=== PATIENT | female | born 1950 | race Caucasian/White ===

== ENCOUNTER 2017-06-01 16:16 | Emergency (ER) | payer MEDICARE, OTHER ==
[2017-06-01 16:33] VITALS: BP 170/81
[2017-06-01] MEDS ORDERED: Lidocaine 1% 20 ML MDV ONE (16:35)
[2017-06-01] MEDS ORDERED: Lidocaine 1% 20 ML MDV INJECT ONE (16:50)
[2017-06-01] MEDS ORDERED: Bacitracin Oint 1 GM U/D Packet TOP ONE (16:50)
[2017-06-01] MEDS ORDERED: Diphtheria,Pertussis(Acell),Tetanus Vaccine 0.5 ML Syringe IM ONE (16:51)
--- NOTE | 2017-06-01 16:57 | EDM.PDOC ---
ED HPI GENERAL MEDICAL PROBLEM - General Chief Complaint: Laceration Stated Complaint: PAIN RT FOOT Time Seen by Provider: 06/01/17 16:31 - History of Present Illness INITIAL COMMENTS - FREE TEXT/NARRATIVE: HISTORY AND PHYSICAL: History of present illness: Patient 66-year-old female presents with a concern of acute injury to her right foot in the form of foreign body this is thought to be a retained fairly large approximately 2 inch splinter she denies up-to-date tetanus Review of systems: As per history of present illness and below otherwise all systems reviewed and negative. Past medical history: As per history of present illness and as reviewed below otherwise noncontributory. Surgical history: As per history of present illness and as reviewed below otherwise noncontributory. Social history: No reported history of drug or alcohol abuse. Family history: As per history of present illness and as reviewed below otherwise noncontributory. Physical exam: HEENT: Atraumatic, normocephalic, pupils reactive, negative for conjunctival pallor or scleral icterus, mucous membranes moist, throat clear, neck supple, nontender, trachea midline. Lungs: Clear to auscultation, breath sounds equal bilaterally, chest nontender. Heart: S1S2, regular, negative for clicks, rubs, or JVD. Abdomen: Soft, nondistended, nontender. Negative for masses or hepatosplenomegaly. Negative for costovertebral tenderness. Pelvis: Stable nontender. Genitourinary: Deferred. Rectal: Deferred. Extremities: Patient has a wound noted on the plantar surface with an obvious retained foreign body CMS and neurovascular exams unremarkable Neuro: Awake, alert, oriented. Cranial nerves II through XII unremarkable. Cerebellum unremarkable. Motor and sensory unremarkable throughout. Exam nonfocal. Diagnostics: None Therapeutics: Patient was anesthetized 1% lidocaine without epinephrine incision was made with 15 blade scalpel and a approximately 4 cm splinter was removed in its entirety wound was subsequently irrigated with cold spots 0.9 normal saline and closed with 4-0 nylon interrupted suture bacitracin was applied tetanus was updated Impression: #1 acute injury right foot (foreign body status post removal) Definitive disposition and diagnosis as appropriate pending reevaluation and review of above. 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 ED EXAM, SKIN/RASH Exam: See Below (See dictation) Course - Vital Signs Last Recorded V/S: Last Vital Signs Temp 36.4 C 06/01/17 16:26 Pulse 85 06/01/17 16:26 Resp 18 06/01/17 16:26 BP 170/81 H 06/01/17 16:26 Pulse Ox 97 06/01/17 16:26 - Orders/Labs/Meds Orders: Active Orders 24 hr Category Date Time Status Vaccines to be Administered [RC] PER UNIT ROUTINE Care 06/01/17 16:51 Active Meds: Medications Discontinued Medications Generic Name Dose Route Start Last Admin Trade Name Freq PRN Reason Stop Dose Admin Bacitracin 1 dose 06/01/17 16:50 Bacitracin Oint 1 Gm TOP 06/01/17 16:51 ONETIME ONE Diphtheria/Tetanus/Acell Pertussis 0.5 ml 06/01/17 16:51 Adacel IM 06/01/17 16:52 .ONCE ONE Lidocaine HCl Confirm 06/01/17 16:35 Xylocaine 1% Administered 06/01/17 16:36 Dose 20 ml .ROUTE .STK-MED ONE Lidocaine HCl 20 ml 06/01/17 16:50 06/01/17 16:52 Xylocaine 1% INJECT 06/01/17 16:51 20 ml ONETIME ONE Administration Departure - Departure Time of Disposition: 16:56 Disposition: Home, Self-Care 01 Condition: Good Clinical Impression: Foreign body - Discharge Information Forms: ED Department Discharge Additional Instructions: The following information is given to patients seen in the emergency department who are being discharged to home. This information is to outline your options for follow-up care. We provide all patients seen in our emergency department with a follow-up referral. The need for follow-up, as well as the timing and circumstances, are variable depending upon the specifics of your emergency department visit. If you don't have a primary care physician on staff, we will provide you with a referral. We always advise you to contact your personal physician following an emergency department visit to inform them of the circumstance of the visit and for follow-up with them and/or the need for any referrals to a consulting specialist. The emergency department will also refer you to a specialist when appropriate. This referral assures that you have the opportunity for followup care with a specialist. All of these measure are taken in an effort to provide you with optimal care, which includes your followup. Under all circumstances we always encourage you to contact your private physician who remains a resource for coordinating your care. When calling for followup care, please make the office aware that this follow-up is from your recent emergency room visit. If for any reason you are refused follow-up, please contact the [facility] emergency department at and asked to speak to the emergency department charge nurse. Follow-up primary medical doctor for wound check 24-48 hours suture removal 10- 14 days return as needed as discussed - My Orders Last 24 Hours: My Active Orders 06/01/17 16:51 Vaccines to be Administered [RC] PER UNIT ROUTINE - Assessment/Plan Last 24 Hours: My Active Orders 06/01/17 16:51 Vaccines to be Administered [RC] PER UNIT ROUTINE
== END 2017-06-01 17:14 | disposition home or self-care (01) ==
LOC: MW.ED 16:16
DX: S90.851A Superficial foreign body, right foot, initial encounter (principal); Z23 Encounter for immunization; Z79.899 Other long term (current) drug therapy; W45.8XXA Other foreign body or object entering through skin, initial encounter
CPT/HCPCS: 10120; 90471; 90715; 99282; 99282-25

== ENCOUNTER 2017-12-09 19:39 | Emergency (ER) | payer MEDICARE, OTHER ==
--- NOTE | 2017-12-09 20:02 | EDM.PDOC ---
ED HPI GENERAL MEDICAL PROBLEM - General Chief Complaint: Abdominal Pain Stated Complaint: ABDOMINAL/BACK PAIN NAUSEA/VOMITING Time Seen by Provider: 12/09/17 19:58 Source of Information: Reports: Patient History Limitations: Reports: No Limitations - History of Present Illness INITIAL COMMENTS - FREE TEXT/NARRATIVE: HISTORY AND PHYSICAL: []67-year-old female presenting with abdominal pain History of Present Illness: []This afternoon about 3:00pm patient felt strange in her stomach when and had a loose bowel movement and then felt like she wanted to vomit. Patient has come in waves often on Review of Systems: As per history of present illness and below otherwise all systems reviewed and negative. Past medical history: As per history of present illness and as reviewed below otherwise noncontributory. Surgical history: As per history of present illness and as reviewed below otherwise noncontributory. Social history: No reported history of drug or alcohol abuse. Family history: As per history of present illness and as reviewed below otherwise noncontributory. Physical exam: Alert and oriented female speaking in full sentences skin is warm and dry. No shortness of breath noted HEENT: Atraumatic, normocehpalic, pupils reactive, negative for conjunctival pallor or scleral icterus, mucous membranes moist, throat clear, neck supple, nontender, trachea midline. Lungs: Clear to auscultation, breath sounds equal bilaterally, chest non tender. Heart: S1S2, regular, negative for clicks, rubs, or JVD. Abdomen: Soft, nondistended, nontender. Negative for masses or hepatossplenmegaly. Positive for right costovertebral tenderness. Pelvis: Stable nontender. Genitourinary: Deferred. Rectal: Deferred Extremities: Atraumatic, negative for cords or calf pain. Neurovascular unremarkable. Neuro: Awake, alert, oriented. Cranial nerves II through XII unremarkable. Cerebellum unremarkable. Motor and sensory unremarkable throughout. Exam nonfocal. Discussed results of the lab work and CT scan with patient and her Diagnostics: [CBC CMP UA CT abdomen and pelvis with contrast] Therapeutics: [IV fluid Toradol] Morphine IV Impression: [Abdominal pain renal stone Pulmonary nodule 7 mm Plan: []Discharged to home Strain all urine Flomax per prescription daily at 2:00 Cipro 500 mg twice a day 7 days Hydrocodone/APAP 5/325 one tablet up to 3 times daily as needed for pain #12 no refill Recommend to follow-up with Dr. Smith, urologist Recommend follow-up establish with primary care Definitive disposition and diagnosis as appropriate pending reevaluation and review of above. Duration: Hour(s): Location: Reports: Back, Pelvis Quality: Reports: Stabbing Severity: Moderate Associated Symptoms: Reports: Other (Frequency of urination) right lower abdomen Pain Score (Numeric/FACES): 5 - Related Data Allergies Allergy/AdvReac Type Severity Reaction Status Date / Time No Known Allergies Allergy Verified 12/09/17 19:57 Home Meds: Home Meds DULoxetine [Cymbalta] 60 mg PO DAILY 06/01/17 [History] Famciclovir [Famvir] 0 mg PO DAILY 12/09/17 [History] Past Medical History - Past Health History Medical/Surgical History: Denies Medical/Surgical History HEENT History: Reports: Impaired 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 ED EXAM, GI/ABD - Physical Exam Exam: See Below (See dictation) Course - Vital Signs Last Recorded V/S: Last Vital Signs Temp 36.4 C 12/09/17 19:54 Pulse 63 12/09/17 19:54 Resp 20 12/09/17 19:54 BP 169/97 H 12/09/17 19:54 Pulse Ox 99 12/09/17 19:54 - Orders/Labs/Meds Orders: Active Orders 24 hr Category Date Time Status Abdomen Pelvis w Cont [CT] Stat Exams 12/09/17 20:08 Taken Sodium Chloride 0.9% [Saline Flush] Med 12/09/17 20:08 Active 10 ml FLUSH ASDIRECTED PRN Sodium Chloride 0.9% [Saline Flush] Med 12/09/17 20:08 Active 2.5 ml FLUSH ASDIRECTED PRN Saline Lock Insert [OM.PC] Stat Oth 12/09/17 20:08 Ordered Medication Orders Sodium Chloride (Saline Flush) 10 ml FLUSH ASDIRECTED PRN PRN Reason: Keep Vein Open Last Admin: 12/09/17 20:36 Dose: 10 ml Sodium Chloride (Saline Flush) 2.5 ml FLUSH ASDIRECTED PRN PRN Reason: Keep Vein Open Last Admin: 12/09/17 20:34 Dose: 2.5 ml Labs: Laboratory Tests 12/09/17 12/09/17 12/09/17 Range/Units 20:00 20:35 20:35 WBC 11.11 H (4.0-11.0) K/uL RBC 4.31 (4.30-5.90) M/uL Hgb 13.4 (12.0-16.0) g/dL Hct 39.6 (36.0-46.0) % MCV 91.9 (80.0-98.0) fL MCH 31.1 (27.0-32.0) pg MCHC 33.8 (31.0-37.0) g/dL RDW Std Deviation 43.3 (28.0-62.0) fl RDW Coeff of Joe 13 (11.0-15.0) % Plt Count 368 (150-400) K/uL MPV 9.70 (7.40-12.00) fL Neut % (Auto) 90.3 H (48.0-80.0) % Lymph % (Auto) 7.3 L (16.0-40.0) % Kerr % (Auto) 2.2 (0.0-15.0) % Eos % (Auto) 0.0 (0.0-7.0) % Baso % (Auto) 0.2 (0.0-1.5) % Neut # (Auto) 10.0 H (1.4-5.7) K/uL Lymph # (Auto) 0.8 (0.6-2.4) K/uL Kerr # (Auto) 0.2 (0.0-0.8) K/uL Eos # (Auto) 0.0 (0.0-0.7) K/uL Baso # (Auto) 0.0 (0.0-0.1) K/uL Nucleated RBC % 0.0 /100WBC Nucleated RBCs # 0 K/uL Sodium 142 (136-146) mmol/L Potassium 3.6 (3.5-5.1) mmol/L Chloride 107 (98-110) mmol/L Carbon Dioxide 23 (21-31) mmol/L BUN 16 (6.0-23.0) mg/dL Creatinine 1.0 (0.6-1.5) mg/dL Est Cr Clr Drug Dosing 48.45 mL/min Estimated GFR (MDRD) 55.1 ml/min Glucose 200 H (60-110) mg/dL Calcium 9.8 (8.8-10.8) mg/dL Total Bilirubin 0.4 (0.1-1.5) mg/dL AST 23 (5-40) IU/L ALT 14 (8-54) IU/L Alkaline Phosphatase 84 (40-150) Total Protein 7.8 (6.0-8.0) g/dL Albumin 4.6 (3.4-4.8) g/dL Globulin 3.2 (2.0-3.5) g/dL Albumin/Globulin Ratio 1.4 (1.3-2.8) Urine Color YELLOW Urine Appearance CLEAR Urine pH 7.0 (5.0-8.0) Ur Specific [place] 1.020 (1.001-1.035) Urine Protein NEGATIVE (NEGATIVE) mg/dL Urine Glucose (UA) 250 H (NEGATIVE) mg/dL Urine Ketones NEGATIVE (NEGATIVE) mg/dL Urine Occult Blood MODERATE (NEGATIVE) Urine Nitrite NEGATIVE (NEGATIVE) Urine Bilirubin NEGATIVE (NEGATIVE) Urine Urobilinogen 0.2 (<2.0) EU/dL Ur Leukocyte Esterase NEGATIVE (NEGATIVE) Meds: Medications Generic Name Dose Route Start Last Admin Trade Name Amarjit PRN Reason Stop Dose Admin Sodium Chloride 10 ml 12/09/17 20:08 12/09/17 20:36 Saline Flush FLUSH 10 ml ASDIRECTED PRN Administration Keep Vein Open Sodium Chloride 2.5 ml 12/09/17 20:08 12/09/17 20:34 Saline Flush FLUSH 2.5 ml ASDIRECTED PRN Administration Keep Vein Open Discontinued Medications Generic Name Dose Route Start Last Admin Trade Name Freq PRN Reason Stop Dose Admin Sodium Chloride 1,000 mls @ 999 mls/hr 12/09/17 20:08 12/09/17 20:34 Normal Saline IV 12/09/17 21:08 999 mls/hr STAT ONE Administration Ketorolac Tromethamine 30 mg 12/09/17 20:08 12/09/17 20:35 Toradol IVPUSH 12/09/17 20:09 30 mg ONETIME ONE Administration Morphine Sulfate 1 mg 12/09/17 21:38 Morphine IVPUSH 12/09/17 21:39 ONETIME ONE Ondansetron HCl 4 mg 12/09/17 21:38 Zofran IVPUSH 12/09/17 21:39 ONETIME ONE Departure - Departure Time of Disposition: 22:11 Disposition: Home, Self-Care 01 Condition: Good Clinical Impression: Renal stones Abdominal pain Qualifiers: Abdominal location: right lower quadrant Qualified Code(s): R10.31 - Right lower quadrant pain - Discharge Information Instructions: Abdominal Pain, Adult, [id number], Pain Medicine Instructions, [id number] Referrals: PCP,None [Primary Care Provider] - Forms: ED Department Discharge Additional Instructions: The following information is given to patients seen in the emergency department who are being discharged to home. This information is to outline your options for follow-up care. We provide all patients seen in our emergency department with a follow-up referral. The need for follow-up, as well as the timing and circumstances, are variable depending upon the specifics of your emergency department visit. If you don't have a primary care physician on staff, we will provide you with a referral. We always advise you to contact your personal physician following an emergency department visit to inform them of the circumstance of the visit and for follow-up with them and/or the need for any referrals to a consulting specialist. The emergency department will also refer you to a specialist when appropriate. This referral assures that you have the opportunity for followup care with a specialist. All of these measure are taken in an effort to provide you with optimal care, which includes your followup. Under all circumstances we always encourage you to contact your private physician who remains a resource for coordinating your care. When calling for followup care, please make the office aware that this follow-up is from your recent emergency room visit. If for any reason you are refused follow-up, please contact the [facility] emergency department at and asked to speak to the emergency department charge nurse. SHe has had abdominal pain likely caused by renal stones Prescriptions have been written for you Flomax 0.4 mg one daily at 2 PM #30 no refill Ciprofloxacin 500 mg one tablet twice a day 7 days Hydrocodone/APAP 5/325mg one tablet up to 3 times daily as needed for pain control #12 no refill Follow-up with Dr.Shahin CODY [facility] - Urology [address] [place] [id number] Incidental findings on your CT scan show a pulmonary nodules 7 mm is recommended to have follow-up with this and is likely benign Have recommended that you establish with primary care and suggest the residency clinic for follow-up care this week Please make an appointment by clling . - My Orders Last 24 Hours: My Active Orders 12/09/17 20:08 Abdomen Pelvis w Cont [CT] Stat Sodium Chloride 0.9% [Saline Flush] 10 ml FLUSH ASDIRECTED PRN Sodium Chloride 0.9% [Saline Flush] 2.5 ml FLUSH ASDIRECTED PRN Saline Lock Insert [OM.PC] Stat - Assessment/Plan Last 24 Hours: My Active Orders 12/09/17 20:08 Abdomen Pelvis w Cont [CT] Stat Sodium Chloride 0.9% [Saline Flush] 10 ml FLUSH ASDIRECTED PRN Sodium Chloride 0.9% [Saline Flush] 2.5 ml FLUSH ASDIRECTED PRN Saline Lock Insert [OM.PC] Stat
[2017-12-09] MEDS ORDERED: Sodium Chloride 0.9% 10 ML Syringe FLUSH PRN (20:08)
[2017-12-09] MEDS ORDERED: Ketorolac 30 MG/ML SDV IVPUSH ONE (20:08)
[2017-12-09] MEDS ORDERED: Sodium Chloride 0.9% 2.5 ML Syringe FLUSH PRN (20:08)
[2017-12-09] MEDS ORDERED: Sodium Chloride 0.9% 1,000 ML IV ONE (20:08)
[2017-12-09] MEDS ORDERED: Morphine 2 MG/ML Syringe IVPUSH ONE (21:38)
[2017-12-09] MEDS ORDERED: Ondansetron 4 MG/2 ML SDV IVPUSH ONE (21:38)
[2017-12-09] MEDS ORDERED: Iopamidol 755 MG/ML 500 ML Multipack Bottle IVPUSH STA (23:31)
[2017-12-09 23:46] VITALS: BP 113/68
--- NOTE | 2017-12-13 11:13 | CT ---
EXAM DATE: 12/09/17 PATIENT'S AGE: 67 Patient: TREY ALCANTAR Facility: [facility] Site . Site : 1950 Study: CT-Abdomen/Pelvis WITH [id number]/21/2018 9:43:19 PM Ordering Physician: Doctor Fiore Final Report: INDICATION: General abd pain Nausea TECHNIQUE: CT abdomen and pelvis acquired with IV contrast. COMPARISON: None FINDINGS: Lower chest: Solid rounded nonspecific noncalcified 7 mm pulmonary nodule within the left lower lobe seen on series 201, image 5. Mild scarring/ atelectasis. . Liver: Nonspecific heterogeneity of the liver. Spleen: Unremarkable. Pancreas: Unremarkable. Gallbladder and bile ducts: Unremarkable. Kidneys: 2 mm calculus within the right ureterovesicular junction with associated right-sided hydroureter/ hydronephrosis and periureteral/perinephric stranding. Delayed nephrogram on the right when compared to the left. Scattered subcentimeter foci of low attenuation throughout the right kidney which is too small to actually characterize by CT, likely renal cysts. . Adrenal glands: Unremarkable. GI tract: Small hiatal hernia. Gastric diverticulum near the gastric antrum. Small diverticulum along the 2nd portion of the duodenum. Moderate amount of stool. Appendix is not visualized. Vascular structures: Negative. No sign of aneurysm. Lymph nodes: Unremarkable. Miscellaneous: Left periumbilical fat containing hernia. No free air or significant free fluid. Pelvic Organs: Unremarkable. Bones: Degenerative changes. IMPRESSION: 1. 2 mm calculus within the right ureterovesicular junction with associated right-sided hydroureter/ hydronephrosis and periureteral/perinephric stranding. 2. Solid rounded nonspecific noncalcified 7 mm pulmonary nodule within the left lower lobe. Recommend comparison with any prior cross-sectional imaging of the chest 2 evaluate for stability/chronicity and/or follow-up per lung rads. Lung-RADS CATEGORY 0 INCOMPLETE: Findings: 1. Prior chest CT examination(s) being located for comparison. 2. Part or all of lungs cannot be evaluated. Management: Additional lung cancer screening CT images and/or comparison to prior chest CT examinations is needed. CATEGORY 1 NEGATIVE: Category Descriptor: No nodules and definitely benign nodules. Findings: 1. No lung nodules. 2. Nodule(s) with specific calcifications: Complete, central, popcorn, concentric rings and fat-containing nodules. Management: Continue annual screening with LDCT in 12 months. CATEGORY 2 BENIGN APPEARANCE OR BEHAVIOR: Category Descriptor: Nodules with a very low likelihood of becoming a clinically active cancer due to size or lack of growth. Findings: 1. Solid nodule(s) less than 6 mm, or new nodules less than 4 mm. 2. Part-solid nodule(s) less than 6 mm total diameter on baseline screening. 3. Non-solid nodule(s) (GGN) less than 20 mm OR greater than or equal to 20 mm and unchanged or slowly growing. 4. Category 3 or 4 nodules unchanged for greater than or equal to 3 months. Management: Continue annual screening with LDCT in 12 months. CATEGORY 3 PROBABLY BENIGN: Category Descriptor: Probably benign finding(s) - short-term follow-up suggested ; includes nodules with a low likelihood of becoming a clinically active cancer. Findings: 1. Solid nodule(s) greater than or equal to 6 mm to less than 8 mm at baseline OR new 4 mm to less than 6 mm. 2. Part-solid nodule(s) greater than or equal to 6 mm total diameter with solid component less than 6 mm OR new less than 6 mm total diameter. 3. Non-solid nodule(s) (GGN) greater than or equal to [address] or new. Management: 6-month LDCT. CATEGORY 4A SUSPICIOUS: Category Descriptor: Findings for which additional diagnostic testing and/or tissue sampling is recommended. Findings: 1. Solid nodule(s) greater than or equal to 8 mm to less than 15 mm at baseline OR growing less than 8 mm OR new 6 mm to 8 mm. 2. Part-solid nodule(s) greater than or equal to 6 mm with a solid component greater than or equal to 6 mm to 8 mm OR with new or growing less than 4 mm solid component. 3. Endobronchial nodule. Management: 3-month LDCT; PET/CT may be used when there is a greater than or equal to 8 mm solid component. CATEGORY 4B SUSPICIOUS: Category Descriptor: Findings for which additional diagnostic and/or tissue sampling is recommended. Findings: 1. Solid nodule(s) greater than or equal to 15 mm OR new or growing and greater than or equal to 8 mm. 2. Part solid nodule(s) with a solid component greater than or equal to 8 mm OR a new or growing greater than or equal to 4 m m solid component. Management: Chest CT with or without contrast, PET/CT and /or tissue sampling depending on the *probability of malignancy and co-morbidities. PET/CT may be used hen there is a greater than or equal to 8 mm solid component. Dictated by Jose Luis Marie MD @ 12/09/2017 10:11:49 PM Dictated by: Jose Luis Marie MD @ 12/09/2017 22:12:03 Signed by: Jose Luis Marie MD @12/09/2017 10:12:03 PM (Electronic Signature) Report Signed by Proxy. ANIRUDH
== END 2017-12-09 22:42 | disposition home or self-care (01) ==
LOC: MW.ED 19:39
DX: N20.0 Calculus of kidney (principal); R91.1 Solitary pulmonary nodule; Z79.899 Other long term (current) drug therapy
CPT/HCPCS: 74177; 80053; 81003; 85025; 96361; 96374; 99284; J1885; J7040; Q9967

== ENCOUNTER 2019-11-18 05:54 | Emergency (ER) | payer MEDICARE, OTHER ==
[2019-11-18] MEDS ORDERED: Sodium Chloride 0.9% 10 ML Syringe FLUSH PRN (05:57)
[2019-11-18] MEDS ORDERED: Sodium Chloride 0.9% 10 ML SDV IV PRN (05:57)
[2019-11-18] MEDS ORDERED: Sodium Chloride 0.9% 2.5 ML Syringe FLUSH PRN (05:57)
--- NOTE | 2019-11-18 06:27 | CT ---
INDICATION: Left-sided weakness COMPARISON: none TECHNIQUE: A CT volumetric acquisition was performed of the brain without IV contrast. FINDINGS: The CT images demonstrate a large intraparenchymal hemorrhage within the posterior right frontal and anterior right parietal region. The hemorrhage extends to the lateral margin of the brain and measures 5.6 cm AP x 3.6 cm transverse x 4.1 cm in height. There is a surrounding band of vasogenic edema and there is effacement of the adjacent cerebral sulci. There is mild leftward bowing of the anterior falx best appreciated on the coronal reformations. There is minimal mass effect upon the frontal horn of the right lateral ventricle. There is no evidence of intraventricular blood and no evidence of an epidural or subdural hematoma. On axial image 33 there is an additional small 6 mm hyperdense focus within the posterior medial right occipital lobe adjacent to the falx. This likely reflects a 2nd area of intraparenchymal hemorrhage. No areas of hemorrhage are noted within the contralateral left cerebral hemisphere. The basal cisterns remain patent. No areas of tissue infarction or hemorrhage are noted within the cerebellum, midbrain or lisa. There is normal aeration of the paranasal sinuses. Mastoid air cells middle ear cavities are clear. The mastoid air cells and middle ear cavities are clear. The calvarium appears intact. There is normal aeration of the visualized paranasal sinuses. IMPRESSION: Large intraparenchymal hemorrhage noted within the right posterior frontal lobe. In addition there is a tiny 6 mm hyperdense area within the posterior medial right occipital lobe suggesting a probable 2nd focus of hemorrhage. Note: I discussed the exam findings with Dr. Hutton in the emergency department at the completion of the exam on 11/18/2019 at 6:15 a.m. Please note that all CT scans at this facility use dose modulation, iterative reconstruction, and/or weight-based dosing when appropriate to reduce radiation dose to as low as reasonably achievable. Dictated by Danie Griffin MD @ Nov 18 2019 6:10AM Signed by Dr. Danie Griffin @ Nov 18 2019 6:26AM
--- NOTE | 2019-11-18 06:32 | EDM.PDOC ---
ED HPI GENERAL MEDICAL PROBLEM - General Chief Complaint: Neuro Symptoms/Deficits Stated Complaint: STROKE Time Seen by Provider: 11/18/19 05:55 Source of Information: Reports: Patient, Family History Limitations: Reports: No Limitations - History of Present Illness INITIAL COMMENTS - FREE TEXT/NARRATIVE: -69year-old female presents to the emergency room last seen normal 10:30 in the evening presents to the emergency room after falling out of bed. Her brought her to the hospital when he noted that she had dysarthria and unable to move her left arm. Patient was brought in by POV Onset: Today Duration: Minutes:, Waxing/Waning Severity: Severe Improves with: Reports: None Worsens with: Reports: None - Related Data Allergies Allergy/AdvReac Type Severity Reaction Status Date / Time No Known Allergies Allergy Verified 11/18/19 06:01 Home Meds: Home Meds DULoxetine [Cymbalta] 60 mg PO DAILY 06/01/17 [History] Past Medical History - Past Health History Medical/Surgical History: Denies Medical/Surgical History HEENT History: Reports: Impaired Vision Other HEENT History: wears glasses [employer] History: Reports: Musculoskeletal History: Reports: None Psychiatric History: Reports: Anxiety Dermatologic History: Reports: None - Infectious Disease History Infectious Disease History: Reports: Chicken Pox, Measles, Mumps - Past Surgical History Other Musculoskeletal Surgeries/Procedures:: knee surgery Social & Family History - Family History Family Medical History: Noncontributory - Tobacco Use Smoking Status *Q: Never Smoker - Caffeine Use Caffeine Use: Reports: None - Recreational Drug Use Recreational Drug Use: No ED ROS GENERAL - Review of Systems Review Of Systems: Comprehensive ROS is negative, except as noted in HPI. Constitutional: Reports: Weakness HEENT: Reports: No Symptoms Respiratory: Reports: No Symptoms Cardiovascular: Reports: No Symptoms Endocrine: Reports: No Symptoms GI/Abdominal: Reports: No Symptoms : Reports: No Symptoms Musculoskeletal: Reports: No Symptoms Skin: Reports: No Symptoms Neurological: Reports: Trouble Speaking (Patient has left arm weakness with dysarthria and left-sided facial droop), Weakness Psychiatric: Reports: No Symptoms Immunologic: Reports: No Symptoms ED EXAM, NEURO - Physical Exam Exam: See Below Text/Narrative:: Presents after being brought in for code stroke. Blood pressures 148/87, pulse of 115, O2 sat 96% 18 respirations rate nonlabored HEENT: Patient has flattening of the left nasolabial fold with dysarthria. Patient also has left-sided weakness, is awake and oriented and aware. Lungs clear to auscultation Chest: Normal S1-S2 no murmurs no gallops graft Abdomen soft nontender Remedies moving all extremities some weakness on the left Exam Limited By: No Limitations General Appearance: Alert, WD/WN, Severe Distress Eye Exam: Bilateral Eye: PERRL Ears: Normal External Exam Nose: Normal Inspection Throat/Mouth: Normal Inspection, Normal Lips, Normal Oropharynx Head Exam: Atraumatic, Normocephalic Neck: Normal Inspection, Supple, Non-Tender Respiratory/Chest: No Respiratory Distress, Lungs Clear, Normal Breath Sounds, No Accessory Muscle Use Cardiovascular: Normal Peripheral Pulses, Regular Rate, Rhythm, No JVD, No Murmur GI/Abdominal: Normal Bowel Sounds, Soft, Non-Tender, No Organomegaly Neurological: Alert, CN II-XII Intact, Oriented x 3 Back Exam: Normal Inspection, Full Range of Motion Extremities: Normal Inspection, Normal Range of Motion, No Pedal Edema, Normal Capillary Refill Psychiatric: Normal Affect, Normal Mood Skin Exam: Warm, Dry, Intact, Normal Color EKG INTERPRETATION EKG Date: 11/18/19 Rhythm: Other (sinusTach rate of 109) [place]: Normal P-Wave: Present QRS: Normal ST-T: Normal QT: Normal Course - Vital Signs Text/Narrative:: -69year-old female presents emergency room after being seen normal at 1030 last night. Patient awoke about 5:30 in the morning and presented to the emergency room at 555 with left-sided weakness dysarthria. Patient was made a code stroke and found to have i cerebral bleed 5 x 6 x 3.7. She has an early midline shift. Patient was accepted at [facility] by Dr. Canales but unable to fly at this time vitals are as follows blood pressures 148/87 pulse of 115 respiratory rate 18 O2 sat 96% patient is guarding her airway and able to talk without any problems. Labs are pending at this time only medication patient is on is for anxiety Cymbalta. This time attempting to get an accepting facility for this patient to go to by not because of weather. This time trying to go to [place] with a fixed wing. Patient is a full code per her . Able to get to [facility] because of weather conditions. We have an accepting physician [facility] the ER physician is Dr. Faye Her condition is unchanged. Patient has a good airway. And vitals are stable. Has been accepted at 6:47 AM Last Recorded V/S: Last Vital Signs Temp 96 F 11/18/19 05:54 Pulse 117 H 11/18/19 05:54 Resp 18 11/18/19 05:54 BP 151/95 H 11/18/19 05:54 Pulse Ox 96 11/18/19 05:54 - Orders/Labs/Meds Orders: Active Orders 24 hr Category Date Time Status Assess Neurological Status [RC] ASDIRECTED Care 11/18/19 06:00 Active Bedrest [RC] ASDIRECTED Care 11/18/19 06:00 Active Cardiac Monitoring [RC] . DIRECTED Care 11/18/19 06:00 Active EKG Documentation Completion [RC] STAT Care 11/18/19 06:00 Active Height and Weight [RC] UPON Care 11/18/19 06:00 Active Initiate Acute Stroke Protocol [RC] STAT Care 11/18/19 06:00 Active NIH Stroke Scale [RC] ASDIRECTED Care 11/18/19 06:00 Active Nursing Bedside Swallow Screen [RC] ASDIRECTED Care 11/18/19 06:00 Active Oxygen Therapy [RC] ASDIRECTED Care 11/18/19 06:00 Active Stroke Education, General [RC] Click to Edit Care 11/18/19 06:00 Active Vital Signs [RC] Q15M Care 11/18/19 06:00 Active Chest 1V Frontal [CR] Stat Exams 11/18/19 06:09 Ordered Head wo Cont [CT] Stat Exams 11/18/19 06:00 Taken COMPREHENSIVE METABOLIC PN,CMP [CHEM] Stat Lab 11/18/19 05:55 Received TROPONIN I [CHEM] Stat Lab 11/18/19 05:55 Received TSH [CHEM] Stat Lab 11/18/19 05:55 Received Sodium Chloride 0.9% [Normal Saline] Med 11/18/19 05:57 Active 10 ml IV ASDIRECTED PRN Sodium Chloride 0.9% [Saline Flush] Med 11/18/19 05:57 Active 10 ml FLUSH ASDIRECTED PRN Sodium Chloride 0.9% [Saline Flush] Med 11/18/19 05:57 Active 2.5 ml FLUSH ASDIRECTED PRN Peripheral IV Insertion Adult [OM.PC] Stat Ot 11/18/19 06:00 Ordered Peripheral IV Insertion Adult [OM.PC] Stat Ot 11/18/19 06:00 Ordered Resuscitation Status Stat Resus Stat 11/18/19 05:57 Ordered Medication Orders Sodium Chloride (Saline Flush) 10 ml FLUSH ASDIRECTED PRN PRN Reason: Keep Vein Open Sodium Chloride (Saline Flush) 2.5 ml FLUSH ASDIRECTED PRN PRN Reason: Keep Vein Open Sodium Chloride (Normal Saline) 10 ml IV ASDIRECTED PRN PRN Reason: IV Use Labs: Laboratory Tests 11/18/19 11/18/19 Range/Units 05:55 05:55 WBC 7.04 (4.0-11.0) K/uL RBC 4.22 L (4.30-5.90) M/uL Hgb 12.8 (12.0-16.0) g/dL Hct 38.7 (36.0-46.0) % MCV 91.7 (80.0-98.0) fL MCH 30.3 (27.0-32.0) pg MCHC 33.1 (31.0-37.0) g/dL RDW Std Deviation 43.5 (28.0-62.0) fl RDW Coeff of Joe 13 (11.0-15.0) % Plt Count 234 (150-400) K/uL MPV 9.40 (7.40-12.00) fL Neut % (Auto) 81.1 H (48.0-80.0) % Lymph % (Auto) 12.2 L (16.0-40.0) % Parker % (Auto) 6.5 (0.0-15.0) % Eos % (Auto) 0.1 (0.0-7.0) % Baso % (Auto) 0.1 (0.0-1.5) % Neut # (Auto) 5.7 (1.4-5.7) K/uL Lymph # (Auto) 0.9 (0.6-2.4) K/uL Parker # (Auto) 0.5 (0.0-0.8) K/uL Eos # (Auto) 0.0 (0.0-0.7) K/uL Baso # (Auto) 0.0 (0.0-0.1) K/uL Nucleated RBC % 0.0 /100WBC Nucleated RBCs # 0 K/uL INR 0.99 APTT 28.7 (18.6-31.3) SEC Meds: Medications Generic Name Dose Route Start Last Admin Trade Name Freq PRN Reason Stop Dose Admin Sodium Chloride 10 ml 11/18/19 05:57 Saline Flush FLUSH ASDIRECTED PRN Keep Vein Open Sodium Chloride 2.5 ml 11/18/19 05:57 Saline Flush FLUSH ASDIRECTED PRN Keep Vein Open Sodium Chloride 10 ml 11/18/19 05:57 Normal Saline IV ASDIRECTED PRN IV Use - Radiology Interpretation Free Text/Narrative:: The patient has an inercerebral bleed 5 x 7 x 3.7. With minimal midline shift Departure - Departure Time of Disposition: 06:54 Disposition: DC/Tfer to Acute Hospital 02 Condition: Serious Clinical Impression: Stroke due to intracerebral hemorrhage - Discharge Information Referrals: Danie Torres MD [Primary Care Provider] - Sepsis Event Note - Evaluation Sepsis Screening Result: No Definite Risk - Focused Exam Vital Signs: Vital Signs Temp Pulse Resp BP Pulse Ox 11/18/19 05:54 96 F 117 H 18 151/95 H 96 Date Exam was Performed: 11/18/19 Time Exam was Performed: 06:26 - My Orders Last 24 Hours: My Active Orders 11/18/19 05:55 COMPREHENSIVE METABOLIC PN,CMP [CHEM] Stat TROPONIN I [CHEM] Stat TSH [CHEM] Stat 11/18/19 05:57 Sodium Chloride 0.9% [Normal Saline] 10 ml IV ASDIRECTED PRN Sodium Chloride 0.9% [Saline Flush] 10 ml FLUSH ASDIRECTED PRN Sodium Chloride 0.9% [Saline Flush] 2.5 ml FLUSH ASDIRECTED PRN Resuscitation Status Stat 11/18/19 06:00 Assess Neurological Status [RC] ASDIRECTED Bedrest [RC] ASDIRECTED Cardiac Monitoring [RC] . DIRECTED EKG Documentation Completion [RC] STAT Height and Weight [RC] UPON Initiate Acute Stroke Protocol [RC] STAT NIH Stroke Scale [RC] ASDIRECTED Nursing Bedside Swallow Screen [RC] ASDIRECTED Oxygen Therapy [RC] ASDIRECTED Stroke Education, General [RC] Click to Edit Vital Signs [RC] Q15M Head wo Cont [CT] Stat Peripheral IV Insertion Adult [OM.PC] Stat Peripheral IV Insertion Adult [OM.PC] Stat 11/18/19 06:09 Chest 1V Frontal [CR] Stat - Assessment/Plan Last 24 Hours: My Active Orders 11/18/19 05:55 COMPREHENSIVE METABOLIC PN,CMP [CHEM] Stat TROPONIN I [CHEM] Stat TSH [CHEM] Stat 11/18/19 05:57 Sodium Chloride 0.9% [Normal Saline] 10 ml IV ASDIRECTED PRN Sodium Chloride 0.9% [Saline Flush] 10 ml FLUSH ASDIRECTED PRN Sodium Chloride 0.9% [Saline Flush] 2.5 ml FLUSH ASDIRECTED PRN Resuscitation Status Stat 11/18/19 06:00 Assess Neurological Status [RC] ASDIRECTED Bedrest [RC] ASDIRECTED Cardiac Monitoring [RC] . DIRECTED EKG Documentation Completion [RC] STAT Height and Weight [RC] UPON Initiate Acute Stroke Protocol [RC] STAT NIH Stroke Scale [RC] ASDIRECTED Nursing Bedside Swallow Screen [RC] ASDIRECTED Oxygen Therapy [RC] ASDIRECTED Stroke Education, General [RC] Click to Edit Vital Signs [RC] Q15M Head wo Cont [CT] Stat Peripheral IV Insertion Adult [OM.PC] Stat Peripheral IV Insertion Adult [OM.PC] Stat 11/18/19 06:09 Chest 1V Frontal [CR] Stat
--- NOTE | 2019-11-18 06:32 | CR ---
INDICATION: Stroke. COMPARISON: none TECHNIQUE: Portable AP erect chest performed at 6:17 a.m. FINDINGS: There is bilateral apical pleural scarring. There are no suspicious masses, infiltrates or nodules. There is no evidence of pneumothorax. The heart, mediastinum and pulmonary vessels are of normal size. There is no evidence of pleural fluid. IMPRESSION: No acute process identified. Dictated by Danie Griffin MD @ Nov 18 2019 6:30AM Signed by Dr. Danie Griffin @ Nov 18 2019 6:31AM
[2019-11-18 06:34] LABS: BLOOD UREA NITROGEN,BUN 9 mg/dL (7.0-18.0); CARBON DIOXIDE,CO2 26.6 mmol/L (21.0-32.0); CHLORIDE,CL 102 mmol/L (98-107); GLUCOSE RANDOM 136 mg/dL (74-106); POTASSIUM,K 3.1 mmol/L (3.5-5.1); SODIUM,NA 138 mmol/L (136-145)
[2019-11-18 07:20] VITALS: BP 157/91; PULSE 104
== END 2019-11-18 07:10 ==
LOC: MW.ED 05:54
DX: S06.309A Unspecified focal traumatic brain injury with loss of consciousness of unspecified duration, initial encounter (principal); W06.XXXA Fall from bed, initial encounter; Z79.899 Other long term (current) drug therapy
CPT/HCPCS: 36415; 70450; 70450-26; 71045; 71045-26; 80053; 84443; 84484; 85025; 85610; 85730; 93005; 99285; 99285-25

== ENCOUNTER 2020-07-31 12:16 | Observation (INO) | payer MEDICARE, OTHER ==
[2020-07-31] MEDS ORDERED: Sodium Chloride 0.9% 10 ML SDV IV PRN (12:25)
[2020-07-31] MEDS ORDERED: Sodium Chloride 0.9% 10 ML Syringe FLUSH PRN (12:25)
[2020-07-31] MEDS ORDERED: Sodium Chloride 0.9% 2.5 ML Syringe FLUSH PRN (12:25)
--- NOTE | 2020-07-31 12:30 | EDM.PDOC ---
ED HPI GENERAL MEDICAL PROBLEM - General Chief Complaint: Neuro Symptoms/Deficits Stated Complaint: STROKE CODE Time Seen by Provider: 07/31/20 12:18 Source of Information: Reports: Patient - History of Present Illness INITIAL COMMENTS - FREE TEXT/NARRATIVE: History of present illness: 69-year-old female presenting with feeling unwell and abnormal speech about 15 minutes prior to arrival here. She was apparently driving with family member and she had just eaten a banana when she started to feel strange. She had some funny pressure feeling over her forehead and felt that she could not make a sentence appropriately and she noticed some shaking of her left arm that she was wondering if she was having a seizure. She did have an intracranial hemorrhage on the right side and a craniotomy about 9 months ago. She reports she has had some minor symptoms that come and go since then including an intermittent left facial droop when she gets fatigued. Stroke alert activated on patient's arrival here. Review of systems: As per history of present illness and below otherwise all systems reviewed and negative. Past medical history: As per history of present illness and as reviewed below otherwise noncontributory. Intracranial hemorrhage, hypertension Surgical history: As per history of present illness and as reviewed below otherwise noncontributory. Craniotomy Social history: No reported history of drug or alcohol abuse. No tobacco Family history: As per history of present illness and as reviewed below otherwise noncontributory. Physical exam: GEN: no acute distress, well appearing HEENT: Atraumatic, normocephalic, mucous membranes moist, very mild left facial droop at rest, corrects with intention. Neck: supple, nontender, trachea midline. Lungs: No respiratory distress. Heart: RRR Abdomen: Soft, nondistended, nontender. Back: nontender Extremities: Atraumatic. Neurovascularly intact. Neuro: Awake, alert, oriented x3. Speech without aphasia or dysarthria. Intact strength over arms and legs bilaterally. No sensory deficit over face, arms and legs. No convulsive activity or abnormal extremity movement. No ataxia on [id number] or [id number]-[id number]-hyoj testing. She does have a very mild left facial droop that does correct when she smiles and she does report that she has had this intermittently as noticed by her spouse especially when she gets fatigued. Skin: warm, dry, no lesions Diagnostics: Labs, CT scan, troponin, EKG Therapeutics: Aspirin, Lipitor MDM: Impression: Plan: Definitive disposition and diagnosis as appropriate pending reevaluation and review of above. - Related Data Allergies Allergy/AdvReac Type Severity Reaction Status Date / Time No Known Allergies Allergy Verified 07/31/20 14:43 Home Meds: Home Meds DULoxetine [Cymbalta] 60 mg PO DAILY 06/01/17 [History] Acetaminophen [Tylenol] 120 mg PO PRN 07/31/20 [History] Past Medical History - Past Health History Medical/Surgical History: Denies Medical/Surgical History HEENT History: Reports: Impaired Vision Other HEENT History: wears glasses [employer] History: Reports: Musculoskeletal History: Reports: None Psychiatric History: Reports: Anxiety Dermatologic History: Reports: None - Infectious Disease History Infectious Disease History: Reports: Chicken Pox, Measles, Mumps - Past Surgical History Other Musculoskeletal Surgeries/Procedures:: knee surgery Social & Family History - Family History Family Medical History: Noncontributory - Caffeine Use Caffeine Use: Reports: None ED ROS GENERAL - Review of Systems Review Of Systems: See Below (See HPI) ED EXAM, NEURO - Physical Exam Exam: See Below (See HPI) EKG INTERPRETATION EKG Interpretation Comments: Performed today at 12:47 PM, sinus tachycardia rate 100 nonspecific intraventricular delay mild lateral and inferior ST depressions with no reciprocal changes. Patient without any chest pain. No STEMI. EKG independently interpreted by me. *Q Meaningful Use (ADM) - Stroke *Q Stroke Criteria *Q: Aspirin and Lipitor given Course - Vital Signs Text/Narrative:: Patient with abnormal speech and some abnormal movement of the left upper extremity. Resolved prior to arrival here. Residual left facial droop but this was present previously per family members. She did have intracranial hemorrhage in October 2019. Stroke alert activated immediately. Initial NIH stroke scale was 1 based on facial droop on the left. CT brain negative for acute intracranial hemorrhage but does have old area of encephalomalacia in the right frontal lobe consistent with location of prior intra-parenchymal hemorrhage October 2019. CT angios head and neck with no large vessel occlusion. Case discussed with interventional neurology at [facility] who recommends against TPA at this time. Reassessment shows unchanged and non-progressing exam. Aspirin and Lipitor given. Will admit the patient here under observation/telemetry. On EKG she did have some mild diffuse ST depressions less than 1 mm, however she has not had any chest pain or difficulty breathing or any other anginal equivalents, there are no reciprocal ST elevations, and her troponin was negative. We will check repeat 2-hour troponin. Repeat 2-hour troponin negative. Last Recorded V/S: Last Vital Signs Temp 97.5 F 07/31/20 14:13 Pulse 77 07/31/20 14:15 Resp 18 07/31/20 14:13 BP 143/86 H 07/31/20 14:15 Pulse Ox 98 07/31/20 14:15 - Orders/Labs/Meds Orders: Active Orders 24 hr Category Date Time Status Patient Status [ADT] Routine ADT 07/31/20 13:30 Active Assess Neurological Status [RC] ASDIRECTED Care 07/31/20 12:26 Active Bedrest [RC] ASDIRECTED Care 07/31/20 12:26 Active Cardiac Monitoring [RC] . DIRECTED Care 07/31/20 12:26 Active EKG Documentation Completion [RC] STAT Care 07/31/20 12:26 Active Height and Weight [RC] UPON Care 07/31/20 12:26 Active Initiate Acute Stroke Protocol [RC] STAT Care 07/31/20 12:26 Active NIH Stroke Scale [RC] ASDIRECTED Care 07/31/20 12:26 Active Nursing Bedside Swallow Screen [RC] ASDIRECTED Care 07/31/20 12:26 Active Oxygen Therapy [RC] ASDIRECTED Care 07/31/20 12:26 Active Stroke Education, General [RC] Click to Edit Care 07/31/20 12:26 Active Vital Signs [RC] Q4H Care 07/31/20 12:26 Active UA W/MICROSCOPIC [URIN] Stat Lab 07/31/20 12:26 Ordered Sodium Chloride 0.9% [Normal Saline] Med 07/31/20 12:25 Active 10 ml IV ASDIRECTED PRN Sodium Chloride 0.9% [Saline Flush] Med 07/31/20 12:25 Active 10 ml FLUSH ASDIRECTED PRN Sodium Chloride 0.9% [Saline Flush] Med 07/31/20 12:25 Active 2.5 ml FLUSH ASDIRECTED PRN Peripheral IV Insertion Adult [OM.PC] Stat Oth 07/31/20 12:26 Ordered Peripheral IV Insertion Adult [OM.PC] Stat Oth 07/31/20 12:26 Ordered Resuscitation Status Stat Resus Stat 07/31/20 12:25 Ordered Medication Orders Acetaminophen (Tylenol Extra Strength) 500 mg PO Q6H PRN PRN Reason: Pain Pantoprazole Sodium (Protonix) 40 mg PO DAILY JIMENA Sodium Chloride (Saline Flush) 10 ml FLUSH ASDIRECTED PRN PRN Reason: Keep Vein Open Last Admin: 07/31/20 12:34 Dose: 10 ml Documented by: CANDIDA Sodium Chloride (Saline Flush) 2.5 ml FLUSH ASDIRECTED PRN PRN Reason: Keep Vein Open Last Admin: 07/31/20 12:34 Dose: 2.5 ml Documented by: CANDIDA Sodium Chloride (Normal Saline) 10 ml IV ASDIRECTED PRN PRN Reason: IV Use Last Admin: 07/31/20 12:34 Dose: 10 ml Documented by: CANDIDA Labs: Laboratory Tests 07/31/20 07/31/20 07/31/20 Range/Units 12:24 12:24 12:24 WBC 5.04 (4.0-11.0) K/uL RBC 4.24 L (4.30-5.90) M/uL Hgb 13.4 (12.0-16.0) g/dL Hct 39.1 (36.0-46.0) % MCV 92.2 (80.0-98.0) fL MCH 31.6 (27.0-32.0) pg MCHC 34.3 (31.0-37.0) g/dL RDW Std Deviation 39.9 (28.0-62.0) fl RDW Coeff of Joe 12 (11.0-15.0) % Plt Count 329 (150-400) K/uL MPV 9.40 (7.40-12.00) fL Neut % (Auto) 61.1 (48.0-80.0) % Lymph % (Auto) 27.0 (16.0-40.0) % [place] % (Auto) 8.5 (0.0-15.0) % Eos % (Auto) 3.0 (0.0-7.0) % Baso % (Auto) 0.4 (0.0-1.5) % Neut # (Auto) 3.1 (1.4-5.7) K/uL Lymph # (Auto) 1.4 (0.6-2.4) K/uL [place] # (Auto) 0.4 (0.0-0.8) K/uL Eos # (Auto) 0.2 (0.0-0.7) K/uL Baso # (Auto) 0.0 (0.0-0.1) K/uL INR 1.00 APTT 28.1 (18.6-31.3) SEC Sodium 140 (136-145) mmol/L Potassium 4.1 (3.5-5.1) mmol/L Chloride 104 (98-107) mmol/L Carbon Dioxide 26.9 (21.0-32.0) mmol/L BUN 19 H (7.0-18.0) mg/dL Creatinine 1.0 (0.6-1.0) mg/dL Est Cr Clr Drug Dosing 47.10 mL/min Estimated GFR (MDRD) 54.8 ml/min Glucose 94 (74-106) mg/dL Hemoglobin A1c (4.5-6.2) % Calcium 8.6 (8.5-10.1) mg/dL Total Bilirubin 0.6 (0.2-1.0) mg/dL AST 22 (15-37) IU/L ALT 29 (14-63) IU/L Alkaline Phosphatase 98 (46-116) U/L Troponin I < 0.050 (0.000-0.056) ng/mL Total Protein 7.4 (6.4-8.2) g/dL Albumin 3.9 (3.4-5.0) g/dL Globulin 3.5 (2.6-4.0) g/dL Albumin/Globulin Ratio 1.1 (0.9-1.6) TSH 3rd Generation 1.26 (0.36-3.74) uIU/mL SARS Virus RNA (PCR) (NEGATIVE) 07/31/20 07/31/20 Range/Units 12:24 13:08 WBC (4.0-11.0) K/uL RBC (4.30-5.90) M/uL Hgb (12.0-16.0) g/dL Hct (36.0-46.0) % MCV (80.0-98.0) fL MCH (27.0-32.0) pg MCHC (31.0-37.0) g/dL RDW Std Deviation (28.0-62.0) fl RDW Coeff of Joe (11.0-15.0) % Plt Count (150-400) K/uL MPV (7.40-12.00) fL Neut % (Auto) (48.0-80.0) % Lymph % (Auto) (16.0-40.0) % [place] % (Auto) (0.0-15.0) % Eos % (Auto) (0.0-7.0) % Baso % (Auto) (0.0-1.5) % Neut # (Auto) (1.4-5.7) K/uL Lymph # (Auto) (0.6-2.4) K/uL [place] # (Auto) (0.0-0.8) K/uL Eos # (Auto) (0.0-0.7) K/uL Baso # (Auto) (0.0-0.1) K/uL INR APTT (18.6-31.3) SEC Sodium (136-145) mmol/L Potassium (3.5-5.1) mmol/L Chloride (98-107) mmol/L Carbon Dioxide (21.0-32.0) mmol/L BUN (7.0-18.0) mg/dL Creatinine (0.6-1.0) mg/dL Est Cr Clr Drug Dosing mL/min Estimated GFR (MDRD) ml/min Glucose (74-106) mg/dL Hemoglobin A1c 6.0 (4.5-6.2) % Calcium (8.5-10.1) mg/dL Total Bilirubin (0.2-1.0) mg/dL AST (15-37) IU/L ALT (14-63) IU/L Alkaline Phosphatase (46-116) U/L Troponin I (0.000-0.056) ng/mL Total Protein (6.4-8.2) g/dL Albumin (3.4-5.0) g/dL Globulin (2.6-4.0) g/dL Albumin/Globulin Ratio (0.9-1.6) TSH 3rd Generation (0.36-3.74) uIU/mL SARS Virus RNA (PCR) NEGATIVE (NEGATIVE) Meds: Medications Generic Name Dose Route Start Last Admin Trade Name Christoferq PRN Reason Stop Dose Admin Acetaminophen 500 mg 07/31/20 15:43 Tylenol Extra Strength PO Q6H PRN Pain Pantoprazole Sodium 40 mg 07/31/20 15:45 Protonix PO DAILY JIMENA Sodium Chloride 10 ml 07/31/20 12:25 07/31/20 12:34 Saline Flush FLUSH 10 ml ASDIRECTED PRN Administration Keep Vein Open Sodium Chloride 2.5 ml 07/31/20 12:25 07/31/20 12:34 Saline Flush FLUSH 2.5 ml ASDIRECTED PRN Administration Keep Vein Open Sodium Chloride 10 ml 07/31/20 12:25 07/31/20 12:34 Normal Saline IV 10 ml ASDIRECTED PRN Administration IV Use Discontinued Medications Generic Name Dose Route Start Last Admin Trade Name Freq PRN Reason Stop Dose Admin Aspirin 81 mg 07/31/20 13:29 07/31/20 15:30 Aspirin PO 07/31/20 13:30 81 mg ONETIME ONE Administration Atorvastatin Calcium 20 mg 07/31/20 13:29 07/31/20 15:30 Lipitor PO 07/31/20 13:30 20 mg ONETIME ONE Administration Atorvastatin Calcium 20 mg 07/31/20 14:15 Lipitor PO 07/31/20 14:16 ONETIME ONE Iopamidol 100 ml 07/31/20 12:52 07/31/20 12:52 Isovue-370 (76%) IVPUSH 07/31/20 12:53 100 ml ONETIME ONE Administration - Re-Assessments/Exams Free Text/Narrative Re-Assessment/Exam: 07/31/20 12:40 I reviewed the noncontrast CT scan images. No acute hemorrhage or stroke seen. Compared to prior CT scan from October 2019, there is now encephalomalacia in the right frontal lobe which is where she had a prior intracranial hemorrhage. 07/31/20 12:48 Case to be discussed with interventional neurologist at [facility] recommendations for TPA and potential transfer 07/31/20 12:[address] BARRON, stroke neurologist at [facility]. We discussed her physical exam findings including NIH stroke scale of 1 with the facial droop that is somewhat chronic prior to today, and that all other symptoms that were present earlier today are now resolved, and her prior history of intracranial hemorrhage in October 2019, and he recommends against TPA and agrees with plan for CT angios head and neck and can give the patient aspirin 81 mg and Lipitor 20 mg. Not a TPA candidate at this time. 07/31/20 13:19 I reassessed the patient. Repeat stroke scale is unchanged, the patient has no new symptoms. Discussed all results of CT brain and CT angios head and neck with the patient, as well as my discussion with the interventional neurologist and recommendations for avoiding TPA at this time. Patient is in agreement with this plan. I had also discussed results and plan with the patient's daughter waiting in the parking lot due to no visitor policy at the hospital currently, and her spouse via telephone. Her spouse did confirm that she has a chronic left facial droop since the intracranial hemorrhage 10/2019. Her daughter did confirm that around noon they were driving and the patient had just eaten a candy and suddenly started to have what appeared to be a twitch/stiffening of her neck and left arm that was very transient and then developed some abnormal speech. She did not choke. On arrival here the symptoms had resolved. 07/31/20 13:26 Dr. Scott called back and accepts the case for admission. Request to place patient under observation/telemetry. Departure - Departure Time of Disposition: 13:29 Disposition: Refer to Observation Clinical Impression: TIA (transient ischemic attack) - Discharge Information Sepsis Event Note (ED) - Focused Exam Vital Signs: Vital Signs Temp Pulse Resp BP Pulse Ox 07/31/20 13:40 80 145/90 H 97 07/31/20 13:14 96 149/87 H 99 07/31/20 12:54 102 H 136/85 98 07/31/20 12:40 123 H 133/80 94 L 07/31/20 12:26 98.8 F 98 16 156/103 H 95 07/31/20 12:24 94 144/93 H 94 L - My Orders Last 24 Hours: My Active Orders 07/31/20 12:25 Sodium Chloride 0.9% [Normal Saline] 10 ml IV ASDIRECTED PRN Sodium Chloride 0.9% [Saline Flush] 10 ml FLUSH ASDIRECTED PRN Sodium Chloride 0.9% [Saline Flush] 2.5 ml FLUSH ASDIRECTED PRN Resuscitation Status Stat 07/31/20 12:26 Assess Neurological Status [RC] ASDIRECTED Bedrest [RC] ASDIRECTED Cardiac Monitoring [RC] . DIRECTED EKG Documentation Completion [RC] STAT Height and Weight [RC] UPON Initiate Acute Stroke Protocol [RC] STAT NIH Stroke Scale [RC] ASDIRECTED Nursing Bedside Swallow Screen [RC] ASDIRECTED Oxygen Therapy [RC] ASDIRECTED Stroke Education, General [RC] Click to Edit Vital Signs [RC] Q4H UA W/MICROSCOPIC [URIN] Stat Peripheral IV Insertion Adult [OM.PC] Stat Peripheral IV Insertion Adult [OM.PC] Stat 07/31/20 13:30 Patient Status [ADT] Routine - Assessment/Plan Last 24 Hours: My Active Orders 07/31/20 12:25 Sodium Chloride 0.9% [Normal Saline] 10 ml IV ASDIRECTED PRN Sodium Chloride 0.9% [Saline Flush] 10 ml FLUSH ASDIRECTED PRN Sodium Chloride 0.9% [Saline Flush] 2.5 ml FLUSH ASDIRECTED PRN Resuscitation Status Stat 07/31/20 12:26 Assess Neurological Status [RC] ASDIRECTED Bedrest [RC] ASDIRECTED Cardiac Monitoring [RC] . DIRECTED EKG Documentation Completion [RC] STAT Height and Weight [RC] UPON Initiate Acute Stroke Protocol [RC] STAT NIH Stroke Scale [RC] ASDIRECTED Nursing Bedside Swallow Screen [RC] ASDIRECTED Oxygen Therapy [RC] ASDIRECTED Stroke Education, General [RC] Click to Edit Vital Signs [RC] Q4H UA W/MICROSCOPIC [URIN] Stat Peripheral IV Insertion Adult [OM.PC] Stat Peripheral IV Insertion Adult [OM.PC] Stat 07/31/20 13:30 Patient Status [ADT] Routine
[2020-07-31] MEDS ORDERED: Iopamidol 755 Mg/ML 100 ML Bottle IVPUSH ONE (12:52)
--- NOTE | 2020-07-31 13:00 | CT ---
CT ANGIOGRAM HEAD AND NECK DATE: 07/31/2020 CLINICAL HISTORY: Patient with focal neurological deficits. TECHNIQUE: Standard helical CT image acquisition through the head and neck was performed after intravenous contrast bolus enhancement. Multiplanar reconstructed images were performed and interpreted. COMPARISON: CT same day. 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 The origins of the great vessels from the aortic arch are patent. The origin of the right vertebral artery is patent. The origin of the left vertebral artery is patent. The common carotid arteries are patent There is no stenosis at the origin of the right internal carotid artery. There is no stenosis at the origin of the left internal carotid artery. The rest of the cervical segments of the internal carotid arteries are patent up to their intracranial segments. The intracranial segments of the internal carotid arteries are patent. The right vertebral artery is dominant. The cervical segments of the vertebral arteries are patent. The intracranial segments of the vertebral arteries are patent. There is no proximal intracranial large vessel occlusion. The visualized lung apices are unremarkable The thyroid gland is unremarkable. The soft tissues of the neck are unremarkable. There are degenerative changes in the cervical spine. IMPRESSION: 1. No proximal intracranial large vessel occlusion. 2. Patent cervical vasculature. 3. 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 Teleheath consultation with [facility]inter[facility] team for management of this aneurysm can be arranged by calling . Laura Justin M.D. Neurointerventional Radiologist [facility] Pager: Office/Appointments: Answering Service: [facility]: [email or web address] Please note that all CT scans at this facility use dose modulation, iterative reconstruction, and/or weight-based dosing when appropriate to reduce radiation dose to as low as reasonably achievable. Dictated by: Laura Justin MD @ 07/31/2020 14:15:30 (Electronically Signed)
--- NOTE | 2020-07-31 13:00 | CT ---
CT ANGIOGRAM HEAD AND NECK DATE: 07/31/2020 CLINICAL HISTORY: Patient with focal neurological deficits. TECHNIQUE: Standard helical CT image acquisition through the head and neck was performed after intravenous contrast bolus enhancement. Multiplanar reconstructed images were performed and interpreted. COMPARISON: CT same day. 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 The origins of the great vessels from the aortic arch are patent. The origin of the right vertebral artery is patent. The origin of the left vertebral artery is patent. The common carotid arteries are patent There is no stenosis at the origin of the right internal carotid artery. There is no stenosis at the origin of the left internal carotid artery. The rest of the cervical segments of the internal carotid arteries are patent up to their intracranial segments. The intracranial segments of the internal carotid arteries are patent. The right vertebral artery is dominant. The cervical segments of the vertebral arteries are patent. The intracranial segments of the vertebral arteries are patent. There is no proximal intracranial large vessel occlusion. The visualized lung apices are unremarkable The thyroid gland is unremarkable. The soft tissues of the neck are unremarkable. There are degenerative changes in the cervical spine. IMPRESSION: 1. No proximal intracranial large vessel occlusion. 2. Patent cervical vasculature. 3. 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 Teleheath consultation with [facility]interventional team for management of this aneurysm can be arranged by calling . Laura Justin M.D. Neurointerventional Radiologist [facility] Pager: Office/Appointments: Answering Service: [facility]: [email or web address] Please note that all CT scans at this facility use dose modulation, iterative reconstruction, and/or weight-based dosing when appropriate to reduce radiation dose to as low as reasonably achievable. Dictated by: Laura Justin MD @ 07/31/2020 14:15:04 (Electronically Signed)
--- NOTE | 2020-07-31 13:05 | CT ---
INDICATION: Concern for stroke. TECHNIQUE: Noncontrast CT images were obtained through the brain. COMPARISON: CT brain 11/18/2019. FINDINGS: Moderate encephalomalacia and gliosis within the lateral right frontal lobe and anterior right insula at the location of prior parenchymal hematoma. Mild diffuse cerebral volume loss. No mass effect or midline shift. The wiseman-white differentiation is maintained. Scattered hypoattenuation in the supratentorial white matter, suggestive of mild chronic microvascular ischemic changes. No acute intracranial hemorrhage or pathologic extra-axial fluid collection. Intracranial atherosclerotic calcifications. Thinning of the ocular lenses. Postsurgical changes of right pterional craniotomy. The paranasal sinuses and mastoid air cells are clear. IMPRESSION: 1. No acute intracranial hemorrhage or mass effect. 2. Moderate encephalomalacia and gliosis within the lateral right frontal lobe and right insula at the location of prior parenchymal hematoma. 3. Suggested mild chronic microvascular ischemic changes. 4. Mild diffuse cerebral volume loss. Please note that all CT scans at this facility use dose modulation, iterative reconstruction, and/or weight-based dosing when appropriate to reduce radiation dose to as low as reasonably achievable. Dictated by Pedro Burnette MD @ Jul 31 2020 12:55PM Signed by Dr. Pedro Burnette @ Jul 31 2020 1:03PM
[2020-07-31 13:10] LABS: BLOOD UREA NITROGEN,BUN 19 mg/dL (7.0-18.0); CARBON DIOXIDE,CO2 26.9 mmol/L (21.0-32.0); CHLORIDE,CL 104 mmol/L (98-107); GLUCOSE RANDOM 94 mg/dL (74-106); POTASSIUM,K 4.1 mmol/L (3.5-5.1); SODIUM,NA 140 mmol/L (136-145)
[2020-07-31] MEDS ORDERED: atorvaSTATin 20 MG Tab PO ONE ×2 (13:29→14:15)
[2020-07-31] MEDS ORDERED: Aspirin 81 MG Tab.Chew PO ONE (13:29)
--- NOTE | 2020-07-31 14:19 | PCM.HP.2 ---
H&P History of Present Illness - General Date of Service: 07/31/20 Admit Problem/Dx: Admission Diagnosis/Problem Admission Diagnosis/Problem TIA, Transient ischemic attack Source of Information: Patient History Limitations: Reports: No Limitations - History of Present Illness Initial Comments - Free Text/Narative: Patient is a 69-year-old female with a significant past medical history of intracranial hemorrhage back in October 2019 status post craniotomy presenting today accompanied by family for sudden onset of slurred speech and feeling off; patient endorsed feeling a pressure sensation over her forehead, slurred speech and some intermittent shaking of her left arm; patient was concerned about having a seizure. Patient was brought into the ED ED course: Stroke code called. CT brain; negative for acute intracranial hemorrhage however did show a area of encephalomalacia consistent with intracranial hemorrhage back in 2018. CT angio head and neck; no large vessel occlusion occlusion ED provider did speak with interventional neurology at [facility] who recommended against TPA. Aspirin and Lipitor were given in the ED. EKG did suggest some mild diffuse ST depressions less than 1 mm: Patient however did not endorse any chest pain, shortness of breath. Troponin x1 was negative. Bedside: No acute concerns. pt. mentions no CP, SOB, palpitations and or changes in speech. At baseline wears sunglasses s/p recent cataract surgery but otherwise denies any deficits. pt states whatever symptoms she may have had have fully resolved and feels like her self - Related Data Allergies/Adverse Reactions: Allergies Allergy/AdvReac Type Severity Reaction Status Date / Time No Known Allergies Allergy Verified 07/31/20 14:43 Home Medications: Home Meds DULoxetine [Cymbalta] 60 mg PO DAILY 06/01/17 [History] Acetaminophen [Tylenol] 120 mg PO PRN 07/31/20 [History] Past Medical History - Past Health History Medical/Surgical History: Denies Medical/Surgical History HEENT History: Reports: Impaired Vision Other HEENT History: wears glasses [employer] History: Reports: Musculoskeletal History: Reports: None Neurological History: Reports: Cerebral Aneurysms Psychiatric History: Reports: Anxiety Dermatologic History: Reports: None - Infectious Disease History Infectious Disease History: Reports: Chicken Pox, Measles, Mumps - Past Surgical History Other Musculoskeletal Surgeries/Procedures:: knee surgery Social & Family History - Family History Family Medical History: Noncontributory - Tobacco Use Smoking Status *Q: Never Smoker Second Hand Smoke Exposure: No - Caffeine Use Caffeine Use: Reports: None - Recreational Drug Use Recreational Drug Use: No H&P Review of Systems - Review of Systems: Review Of Systems: See Below General: Reports: No Symptoms HEENT: Reports: No Symptoms Pulmonary: Reports: No Symptoms Cardiovascular: Reports: No Symptoms Gastrointestinal: Reports: No Symptoms Genitourinary: Reports: No Symptoms Musculoskeletal: Reports: No Symptoms Skin: Reports: No Symptoms Psychiatric: Reports: No Symptoms Neurological: Reports: No Symptoms Exam - Exam Exam: See Below - Vital Signs Vital Signs: Last Vital Signs Temp 98.8 F 07/31/20 12:26 Pulse 96 07/31/20 13:14 Resp 16 07/31/20 12:26 BP 149/87 H 07/31/20 13:14 Pulse Ox 99 07/31/20 13:14 Weight: 76.9 kg - Exam Quality Assessment: No: Supplemental Oxygen General: Alert, Oriented, Cooperative HEENT: EOMI, Mucosa Moist & [place], Other (minimal horizontal nystagmus. Left TM heavy cerumen w.o impaction ) Neck: Supple, Trachea Midline Lungs: Clear to Auscultation, Normal Respiratory Effort Cardiovascular: Regular Rate, Regular Rhythm GI/Abdominal Exam: Soft, Non-Tender Extremities: Normal Inspection, Normal Range of Motion, No Pedal Edema Skin: Warm, Dry, Intact Neurological: Cranial Nerves Intact, Reflexes Equal Bilateral, Strength Equal Bilateral, Normal Gait, Normal Speech, Sensation Intact. No: Focal Deficit Neuro Extensive - Mental Status: Alert, Oriented x3, Normal Mood/Affect, Normal Cognition, Memory Intact Neuro Extensive - Motor, Sensory, Reflexes: CN II-XII Intact, Normal Gait, Normal Reflexes. No: Tongue Deviation (L), Tongue Deviation (R), Dysarthria, Receptive Aphasia, Expressive Aphasia, Facial palsy (L), Pronator Drift (R), Pronator Drift (L) Psychiatric: Alert, Normal Affect, Normal Mood - Patient Data Lab Results Last 24 hrs: Laboratory Results - last 24 hr 07/31/20 07/31/20 07/31/20 Range/Units 12:24 12:24 12:24 WBC 5.04 (4.0-11.0) K/uL RBC 4.24 L (4.30-5.90) M/uL Hgb 13.4 (12.0-16.0) g/dL Hct 39.1 (36.0-46.0) % MCV 92.2 (80.0-98.0) fL MCH 31.6 (27.0-32.0) pg MCHC 34.3 (31.0-37.0) g/dL RDW Std Deviation 39.9 (28.0-62.0) fl RDW Coeff of Joe 12 (11.0-15.0) % Plt Count 329 (150-400) K/uL MPV 9.40 (7.40-12.00) fL Neut % (Auto) 61.1 (48.0-80.0) % Lymph % (Auto) 27.0 (16.0-40.0) % [place] % (Auto) 8.5 (0.0-15.0) % Eos % (Auto) 3.0 (0.0-7.0) % Baso % (Auto) 0.4 (0.0-1.5) % Neut # (Auto) 3.1 (1.4-5.7) K/uL Lymph # (Auto) 1.4 (0.6-2.4) K/uL [place] # (Auto) 0.4 (0.0-0.8) K/uL Eos # (Auto) 0.2 (0.0-0.7) K/uL Baso # (Auto) 0.0 (0.0-0.1) K/uL INR 1.00 APTT 28.1 (18.6-31.3) SEC Sodium 140 (136-145) mmol/L Potassium 4.1 (3.5-5.1) mmol/L Chloride 104 (98-107) mmol/L Carbon Dioxide 26.9 (21.0-32.0) mmol/L BUN 19 H (7.0-18.0) mg/dL Creatinine 1.0 (0.6-1.0) mg/dL Est Cr Clr Drug Dosing 47.10 mL/min Estimated GFR (MDRD) 54.8 ml/min Glucose 94 (74-106) mg/dL Calcium 8.6 (8.5-10.1) mg/dL Total Bilirubin 0.6 (0.2-1.0) mg/dL AST 22 (15-37) IU/L ALT 29 (14-63) IU/L Alkaline Phosphatase 98 (46-116) U/L Troponin I < 0.050 (0.000-0.056) ng/mL Total Protein 7.4 (6.4-8.2) g/dL Albumin 3.9 (3.4-5.0) g/dL Globulin 3.5 (2.6-4.0) g/dL Albumin/Globulin Ratio 1.1 (0.9-1.6) TSH 3rd Generation 1.26 (0.36-3.74) uIU/mL SARS Virus RNA (PCR) (NEGATIVE) 07/31/20 Range/Units 13:08 WBC (4.0-11.0) K/uL RBC (4.30-5.90) M/uL Hgb (12.0-16.0) g/dL Hct (36.0-46.0) % MCV (80.0-98.0) fL MCH (27.0-32.0) pg MCHC (31.0-37.0) g/dL RDW Std Deviation (28.0-62.0) fl RDW Coeff of Joe (11.0-15.0) % Plt Count (150-400) K/uL MPV (7.40-12.00) fL Neut % (Auto) (48.0-80.0) % Lymph % (Auto) (16.0-40.0) % [place] % (Auto) (0.0-15.0) % Eos % (Auto) (0.0-7.0) % Baso % (Auto) (0.0-1.5) % Neut # (Auto) (1.4-5.7) K/uL Lymph # (Auto) (0.6-2.4) K/uL [place] # (Auto) (0.0-0.8) K/uL Eos # (Auto) (0.0-0.7) K/uL Baso # (Auto) (0.0-0.1) K/uL INR APTT (18.6-31.3) SEC Sodium (136-145) mmol/L Potassium (3.5-5.1) mmol/L Chloride (98-107) mmol/L Carbon Dioxide (21.0-32.0) mmol/L BUN (7.0-18.0) mg/dL Creatinine (0.6-1.0) mg/dL Est Cr Clr Drug Dosing mL/min Estimated GFR (MDRD) ml/min Glucose (74-106) mg/dL Calcium (8.5-10.1) mg/dL Total Bilirubin (0.2-1.0) mg/dL AST (15-37) IU/L ALT (14-63) IU/L Alkaline Phosphatase (46-116) U/L Troponin I (0.000-0.056) ng/mL Total Protein (6.4-8.2) g/dL Albumin (3.4-5.0) g/dL Globulin (2.6-4.0) g/dL Albumin/Globulin Ratio (0.9-1.6) TSH 3rd Generation (0.36-3.74) uIU/mL SARS Virus RNA (PCR) NEGATIVE (NEGATIVE) Result Diagrams: 07/31/20 12:24 07/31/20 12:24 Sepsis Event Note - Evaluation Sepsis Screening Result: No Definite Risk - Focused Exam Vital Signs: Vital Signs Temp Pulse Resp BP Pulse Ox 07/31/20 13:14 96 149/87 H 99 07/31/20 12:54 102 H 136/85 98 07/31/20 12:40 123 H 133/80 94 L 07/31/20 12:26 98.8 F 98 16 156/103 H 95 07/31/20 12:24 94 144/93 H 94 L Problem List Initiated/Reviewed/Updated: Yes Orders Last 24hrs: Active Orders 24 hr Category Date Time Status Patient Status [ADT] Routine ADT 07/31/20 13:30 Active Assess Neurological Status [RC] ASDIRECTED Care 07/31/20 12:26 Active Bedrest [RC] ASDIRECTED Care 07/31/20 12:26 Active Cardiac Monitoring [RC] . DIRECTED Care 07/31/20 12:26 Active EKG Documentation Completion [RC] STAT Care 07/31/20 12:26 Active Height and Weight [RC] UPON Care 07/31/20 12:26 Active Initiate Acute Stroke Protocol [RC] STAT Care 07/31/20 12:26 Active NIH Stroke Scale [RC] ASDIRECTED Care 07/31/20 12:26 Active Nursing Bedside Swallow Screen [RC] ASDIRECTED Care 07/31/20 12:26 Active Oxygen Therapy [RC] ASDIRECTED Care 07/31/20 12:26 Active Stroke Education, General [RC] Click to Edit Care 07/31/20 12:26 Active Vital Signs [RC] Q15M Care 07/31/20 12:26 Active TROPONIN I [CHEM] Stat Lab 07/31/20 14:25 Ordered UA W/MICROSCOPIC [URIN] Stat Lab 07/31/20 12:26 Ordered Sodium Chloride 0.9% [Normal Saline] Med 07/31/20 12:25 Active 10 ml IV ASDIRECTED PRN Sodium Chloride 0.9% [Saline Flush] Med 07/31/20 12:25 Active 10 ml FLUSH ASDIRECTED PRN Sodium Chloride 0.9% [Saline Flush] Med 07/31/20 12:25 Active 2.5 ml FLUSH ASDIRECTED PRN Peripheral IV Insertion Adult [OM.PC] Stat Oth 07/31/20 12:26 Ordered Peripheral IV Insertion Adult [OM.PC] Stat Oth 07/31/20 12:26 Ordered Resuscitation Status Stat Resus Stat 07/31/20 12:25 Ordered Medication Orders Sodium Chloride (Saline Flush) 10 ml FLUSH ASDIRECTED PRN PRN Reason: Keep Vein Open Last Admin: 07/31/20 12:34 Dose: 10 ml Documented by: CANDIDA Sodium Chloride (Saline Flush) 2.5 ml FLUSH ASDIRECTED PRN PRN Reason: Keep Vein Open Last Admin: 07/31/20 12:34 Dose: 2.5 ml Documented by: BECKIEMEL Sodium Chloride (Normal Saline) 10 ml IV ASDIRECTED PRN PRN Reason: IV Use Last Admin: 07/31/20 12:34 Dose: 10 ml Documented by: CANDIDA Assessment/Plan Comment:: Assessment: 1. Dysarthria concerning for TIA/Stroke 2. Significant history of Intra-parenchymal hemorrhage s/p Craniotomy () 3. PMH: Anxiety, stroke 4. hypercholesterolemia Plan Admit to observation. DNR/DNI . I/O's per routine. Up with assistance. Seizure precautions DVT prophylaxis: SCD GI: pantoprazole PO daily Heart healthy diet (passed bedside swallow) COVID negative 1. Dysarthria: resolution of slurred speech upon arrival to ED. CT imaging of brain, head and neck did not demonstrate any acute infarctions/stenosis repeat troponin at 1730, telemetry monitoring Allow for permissive HTN:140-180 for now MRI Brain: will consider order once services available ECHO: will consider order once services available. requesting records from outside facility : last full work up during stroke 9 mos prior Continue daily ASA + Statin: pt mentions no other daily medications except Cymbalta for "nerves" ; continue Differential include: TIA, seizure, hypoglycemia, cardiac event e.g : dysrhythmia, Hypercholesterolemia Continue ASA + Lipitor A1c: 6.0: pre-diabetes'; will however continue TID accu-checks; will try to avoi d hypoglycemia as this is also part of the current differential
[2020-07-31] MEDS: Acetaminophen 500 MG Tab PO PRN ×2 (16:23→22:36)
[2020-07-31] MEDS: Pantoprazole 40 MG Tab.CR PO SCH (16:24)
[2020-08-01] MEDS: Acetaminophen 500 MG Tab PO PRN (04:40)
[2020-08-01 07:12] LABS: BLOOD UREA NITROGEN,BUN 22 mg/dL (7.0-18.0); CARBON DIOXIDE,CO2 25.2 mmol/L (21.0-32.0); CHLORIDE,CL 105 mmol/L (98-107); GLUCOSE RANDOM 91 mg/dL (74-106); POTASSIUM,K 3.8 mmol/L (3.5-5.1); SODIUM,NA 139 mmol/L (136-145)
[2020-08-01] MEDS: Pantoprazole 40 MG Tab.CR PO SCH (08:47)
[2020-08-01] MEDS ORDERED: atorvaSTATin 20 MG Tab PO SCH ×2 (09:00)
[2020-08-01] MEDS ORDERED: Aspirin 81 MG Tab.EC PO SCH (09:00)
--- NOTE | 2020-08-01 11:25 | PCM.DCSUM1 ---
Discharge Summary - Discharge Data Discharge Date: 08/01/20 Discharge Disposition: Home, Self-Care 01 Condition: Stable - Referral to Home Health Primary Care Physician: PCP None - Patient Summary/Data Hospital Course: Patient is a 69-year-old female with a significant past medical history of intracranial hemorrhage back in October 2019 status post craniotomy presenting today accompanied by family for sudden onset of slurred speech and feeling off; patient endorsed feeling a pressure sensation over her forehead, slurred speech and some intermittent shaking of her left arm; Symptoms resolved suddenly before arriving to ED. CT brain was negative for acute intracranial hemorrhage however did show a area of encephalomalacia consistent with intracranial hemorrhage back in 2018.CT angio head and neck showed no large vessel occlusion occlusion. ED provider did speak with interventional neurology at [facility] who recommended against TPA but recommended aspirin and statin. She was monitored overnight without and events on telemetry. This morning she is requesting discharge. We have no MRI capabilities on weekend and patient was offered referral. Patient prefers to follow up with her neurology in [place]. - Patient Instructions Diet: Diabetic Diet - Discharge Plan Prescriptions/Med Rec: Aspirin [Halfprin] 81 mg PO DAILY #30 tab.ec atorvaSTATin [Lipitor] 40 mg PO DAILY #30 tablet Home Medications: Home Meds DULoxetine [Cymbalta] 60 mg PO DAILY 06/01/17 [History] Acetaminophen [Tylenol] 120 mg PO PRN 07/31/20 [History] Aspirin [Halfprin] 81 mg PO DAILY #30 tab.ec 08/01/20 [Rx] atorvaSTATin [Lipitor] 40 mg PO DAILY #30 tablet 08/01/20 [Rx] Patient Handouts: Transient Ischemic Attack, [id number] Referrals: PCP,None [Primary Care Provider] - - Discharge Summary/Plan Comment DC Time >30 min.: No - Patient Data Vitals - Most Recent: Last Vital Signs Temp 36.8 C 08/01/20 08:00 Pulse 74 08/01/20 08:00 Resp 16 08/01/20 08:00 BP 111/63 08/01/20 08:00 Pulse Ox 96 08/01/20 08:00 Weight - Most Recent: 76.9 kg I&O - Last 24 hours: Intake & Output 07/31/20 08/01/20 08/01/20 22:59 06:59 14:59 Intake Total 100 700 Output Total 560 Balance 100 140 Lab Results - Last 24 hrs: Laboratory Results - last 24 hr 07/31/20 07/31/20 07/31/20 Range/Units 12:24 12:24 12:24 WBC 5.04 (4.0-11.0) K/uL RBC 4.24 L (4.30-5.90) M/uL Hgb 13.4 (12.0-16.0) g/dL Hct 39.1 (36.0-46.0) % MCV 92.2 (80.0-98.0) fL MCH 31.6 (27.0-32.0) pg MCHC 34.3 (31.0-37.0) g/dL RDW Std Deviation 39.9 (28.0-62.0) fl RDW Coeff of Joe 12 (11.0-15.0) % Plt Count 329 (150-400) K/uL MPV 9.40 (7.40-12.00) fL Neut % (Auto) 61.1 (48.0-80.0) % Lymph % (Auto) 27.0 (16.0-40.0) % [place] % (Auto) 8.5 (0.0-15.0) % Eos % (Auto) 3.0 (0.0-7.0) % Baso % (Auto) 0.4 (0.0-1.5) % Neut # (Auto) 3.1 (1.4-5.7) K/uL Lymph # (Auto) 1.4 (0.6-2.4) K/uL [place] # (Auto) 0.4 (0.0-0.8) K/uL Eos # (Auto) 0.2 (0.0-0.7) K/uL Baso # (Auto) 0.0 (0.0-0.1) K/uL INR 1.00 APTT 28.1 (18.6-31.3) SEC Sodium 140 (136-145) mmol/L Potassium 4.1 (3.5-5.1) mmol/L Chloride 104 (98-107) mmol/L Carbon Dioxide 26.9 (21.0-32.0) mmol/L BUN 19 H (7.0-18.0) mg/dL Creatinine 1.0 (0.6-1.0) mg/dL Est Cr Clr Drug Dosing 47.10 mL/min Estimated GFR (MDRD) 54.8 ml/min Glucose 94 (74-106) mg/dL POC Glucose (60-110) mg/dL Hemoglobin A1c (4.5-6.2) % Calcium 8.6 (8.5-10.1) mg/dL Total Bilirubin 0.6 (0.2-1.0) mg/dL AST 22 (15-37) IU/L ALT 29 (14-63) IU/L Alkaline Phosphatase 98 (46-116) U/L Troponin I < 0.050 (0.000-0.056) ng/mL Total Protein 7.4 (6.4-8.2) g/dL Albumin 3.9 (3.4-5.0) g/dL Globulin 3.5 (2.6-4.0) g/dL Albumin/Globulin Ratio 1.1 (0.9-1.6) Triglycerides (0-200) mg/dL Cholesterol (50-200) mg/dL LDL Cholesterol, Calc (60-180) mg/dL VLDL Cholesterol (5-55) mg/dL HDL Cholesterol (40-60) mg/dL Cholesterol/HDL Ratio (3.3-6.0) TSH 3rd Generation 1.26 (0.36-3.74) uIU/mL Urine Color Urine Appearance Urine pH (5.0-8.0) Ur Specific [place] (1.001-1.035) Urine Protein (NEGATIVE) mg/dL Urine Glucose (UA) (NEGATIVE) mg/dL Urine Ketones (NEGATIVE) mg/dL Urine Occult Blood (NEGATIVE) Urine Nitrite (NEGATIVE) Urine Bilirubin (NEGATIVE) Urine Urobilinogen (<2.0) EU/dL Ur Leukocyte Esterase (NEGATIVE) Urine RBC (0-2/HPF) Urine WBC (0-5/HPF) Ur Epithelial Cells (NONE-FEW) Urine Bacteria (NEGATIVE) SARS Virus RNA (PCR) (NEGATIVE) 07/31/20 07/31/20 07/31/20 Range/Units 12:24 13:08 14:26 WBC (4.0-11.0) K/uL RBC (4.30-5.90) M/uL Hgb (12.0-16.0) g/dL Hct (36.0-46.0) % MCV (80.0-98.0) fL MCH (27.0-32.0) pg MCHC (31.0-37.0) g/dL RDW Std Deviation (28.0-62.0) fl RDW Coeff of Joe (11.0-15.0) % Plt Count (150-400) K/uL MPV (7.40-12.00) fL Neut % (Auto) (48.0-80.0) % Lymph % (Auto) (16.0-40.0) % [place] % (Auto) (0.0-15.0) % Eos % (Auto) (0.0-7.0) % Baso % (Auto) (0.0-1.5) % Neut # (Auto) (1.4-5.7) K/uL Lymph # (Auto) (0.6-2.4) K/uL [place] # (Auto) (0.0-0.8) K/uL Eos # (Auto) (0.0-0.7) K/uL Baso # (Auto) (0.0-0.1) K/uL INR APTT (18.6-31.3) SEC Sodium (136-145) mmol/L Potassium (3.5-5.1) mmol/L Chloride (98-107) mmol/L Carbon Dioxide (21.0-32.0) mmol/L BUN (7.0-18.0) mg/dL Creatinine (0.6-1.0) mg/dL Est Cr Clr Drug Dosing mL/min Estimated GFR (MDRD) ml/min Glucose (74-106) mg/dL POC Glucose (60-110) mg/dL Hemoglobin A1c 6.0 (4.5-6.2) % Calcium (8.5-10.1) mg/dL Total Bilirubin (0.2-1.0) mg/dL AST (15-37) IU/L ALT (14-63) IU/L Alkaline Phosphatase (46-116) U/L Troponin I < 0.050 (0.000-0.056) ng/mL Total Protein (6.4-8.2) g/dL Albumin (3.4-5.0) g/dL Globulin (2.6-4.0) g/dL Albumin/Globulin Ratio (0.9-1.6) Triglycerides (0-200) mg/dL Cholesterol (50-200) mg/dL LDL Cholesterol, Calc (60-180) mg/dL VLDL Cholesterol (5-55) mg/dL HDL Cholesterol (40-60) mg/dL Cholesterol/HDL Ratio (3.3-6.0) TSH 3rd Generation (0.36-3.74) uIU/mL Urine Color Urine Appearance Urine pH (5.0-8.0) Ur Specific [place] (1.001-1.035) Urine Protein (NEGATIVE) mg/dL Urine Glucose (UA) (NEGATIVE) mg/dL Urine Ketones (NEGATIVE) mg/dL Urine Occult Blood (NEGATIVE) Urine Nitrite (NEGATIVE) Urine Bilirubin (NEGATIVE) Urine Urobilinogen (<2.0) EU/dL Ur Leukocyte Esterase (NEGATIVE) Urine RBC (0-2/HPF) Urine WBC (0-5/HPF) Ur Epithelial Cells (NONE-FEW) Urine Bacteria (NEGATIVE) SARS Virus RNA (PCR) NEGATIVE (NEGATIVE) 07/31/20 07/31/20 07/31/20 Range/Units 14:26 16:17 17:43 WBC (4.0-11.0) K/uL RBC (4.30-5.90) M/uL Hgb (12.0-16.0) g/dL Hct (36.0-46.0) % MCV (80.0-98.0) fL MCH (27.0-32.0) pg MCHC (31.0-37.0) g/dL RDW Std Deviation (28.0-62.0) fl RDW Coeff of Joe (11.0-15.0) % Plt Count (150-400) K/uL MPV (7.40-12.00) fL Neut % (Auto) (48.0-80.0) % Lymph % (Auto) (16.0-40.0) % [place] % (Auto) (0.0-15.0) % Eos % (Auto) (0.0-7.0) % Baso % (Auto) (0.0-1.5) % Neut # (Auto) (1.4-5.7) K/uL Lymph # (Auto) (0.6-2.4) K/uL [place] # (Auto) (0.0-0.8) K/uL Eos # (Auto) (0.0-0.7) K/uL Baso # (Auto) (0.0-0.1) K/uL INR APTT (18.6-31.3) SEC Sodium (136-145) mmol/L Potassium (3.5-5.1) mmol/L Chloride (98-107) mmol/L Carbon Dioxide (21.0-32.0) mmol/L BUN (7.0-18.0) mg/dL Creatinine (0.6-1.0) mg/dL Est Cr Clr Drug Dosing mL/min Estimated GFR (MDRD) ml/min Glucose (74-106) mg/dL POC Glucose 73 (60-110) mg/dL Hemoglobin A1c (4.5-6.2) % Calcium (8.5-10.1) mg/dL Total Bilirubin (0.2-1.0) mg/dL AST (15-37) IU/L ALT (14-63) IU/L Alkaline Phosphatase (46-116) U/L Troponin I < 0.050 (0.000-0.056) ng/mL Total Protein (6.4-8.2) g/dL Albumin (3.4-5.0) g/dL Globulin (2.6-4.0) g/dL Albumin/Globulin Ratio (0.9-1.6) Triglycerides 74 (0-200) mg/dL Cholesterol 219 H (50-200) mg/dL LDL Cholesterol, Calc 142 (60-180) mg/dL VLDL Cholesterol 14 (5-55) mg/dL HDL Cholesterol 62 H (40-60) mg/dL Cholesterol/HDL Ratio 3.5 (3.3-6.0) TSH 3rd Generation (0.36-3.74) uIU/mL Urine Color Urine Appearance Urine pH (5.0-8.0) Ur Specific [place] (1.001-1.035) Urine Protein (NEGATIVE) mg/dL Urine Glucose (UA) (NEGATIVE) mg/dL Urine Ketones (NEGATIVE) mg/dL Urine Occult Blood (NEGATIVE) Urine Nitrite (NEGATIVE) Urine Bilirubin (NEGATIVE) Urine Urobilinogen (<2.0) EU/dL Ur Leukocyte Esterase (NEGATIVE) Urine RBC (0-2/HPF) Urine WBC (0-5/HPF) Ur Epithelial Cells (NONE-FEW) Urine Bacteria (NEGATIVE) SARS Virus RNA (PCR) (NEGATIVE) 07/31/20 08/01/20 08/01/20 Range/Units 21:00 06:05 06:05 WBC 5.37 (4.0-11.0) K/uL RBC 3.99 L (4.30-5.90) M/uL Hgb 12.6 (12.0-16.0) g/dL Hct 37.1 (36.0-46.0) % MCV 93.0 (80.0-98.0) fL MCH 31.6 (27.0-32.0) pg MCHC 34.0 (31.0-37.0) g/dL RDW Std Deviation 40.9 (28.0-62.0) fl RDW Coeff of [place] 12 (11.0-15.0) % Plt Count 320 (150-400) K/uL MPV 9.70 (7.40-12.00) fL Neut % (Auto) 48.7 (48.0-80.0) % Lymph % (Auto) 35.4 (16.0-40.0) % [place] % (Auto) 10.1 (0.0-15.0) % Eos % (Auto) 5.2 (0.0-7.0) % Baso % (Auto) 0.6 (0.0-1.5) % Neut # (Auto) 2.6 (1.4-5.7) K/uL Lymph # (Auto) 1.9 (0.6-2.4) K/uL [place] # (Auto) 0.5 (0.0-0.8) K/uL Eos # (Auto) 0.3 (0.0-0.7) K/uL Baso # (Auto) 0.0 (0.0-0.1) K/uL INR APTT (18.6-31.3) SEC Sodium 139 (136-145) mmol/L Potassium 3.8 (3.5-5.1) mmol/L Chloride 105 (98-107) mmol/L Carbon Dioxide 25.2 (21.0-32.0) mmol/L BUN 22 H (7.0-18.0) mg/dL Creatinine 0.9 (0.6-1.0) mg/dL Est Cr Clr Drug Dosing 52.34 mL/min Estimated GFR (MDRD) > 60.0 ml/min Glucose 91 (74-106) mg/dL POC Glucose (60-110) mg/dL Hemoglobin A1c (4.5-6.2) % Calcium 8.3 L (8.5-10.1) mg/dL Total Bilirubin (0.2-1.0) mg/dL AST (15-37) IU/L ALT (14-63) IU/L Alkaline Phosphatase (46-116) U/L Troponin I (0.000-0.056) ng/mL Total Protein (6.4-8.2) g/dL Albumin (3.4-5.0) g/dL Globulin (2.6-4.0) g/dL Albumin/Globulin Ratio (0.9-1.6) Triglycerides (0-200) mg/dL Cholesterol (50-200) mg/dL LDL Cholesterol, Calc (60-180) mg/dL VLDL Cholesterol (5-55) mg/dL HDL Cholesterol (40-60) mg/dL Cholesterol/HDL Ratio (3.3-6.0) TSH 3rd Generation (0.36-3.74) uIU/mL Urine Color YELLOW Urine Appearance CLEAR Urine pH 6.5 (5.0-8.0) Ur Specific [place] 1.010 (1.001-1.035) Urine Protein NEGATIVE (NEGATIVE) mg/dL Urine Glucose (UA) NEGATIVE (NEGATIVE) mg/dL Urine Ketones NEGATIVE (NEGATIVE) mg/dL Urine Occult Blood NEGATIVE (NEGATIVE) Urine Nitrite NEGATIVE (NEGATIVE) Urine Bilirubin NEGATIVE (NEGATIVE) Urine Urobilinogen 0.2 (<2.0) EU/dL Ur Leukocyte Esterase TRACE H (NEGATIVE) Urine RBC 0-1 (0-2/HPF) Urine WBC 0-2 (0-5/HPF) Ur Epithelial Cells RARE (NONE-FEW) Urine Bacteria FEW (NEGATIVE) SARS Virus RNA (PCR) (NEGATIVE) 08/01/20 Range/Units 06:35 WBC (4.0-11.0) K/uL RBC (4.30-5.90) M/uL Hgb (12.0-16.0) g/dL Hct (36.0-46.0) % MCV (80.0-98.0) fL MCH (27.0-32.0) pg MCHC (31.0-37.0) g/dL RDW Std Deviation (28.0-62.0) fl RDW Coeff of Joe (11.0-15.0) % Plt Count (150-400) K/uL MPV (7.40-12.00) fL Neut % (Auto) (48.0-80.0) % Lymph % (Auto) (16.0-40.0) % [place] % (Auto) (0.0-15.0) % Eos % (Auto) (0.0-7.0) % Baso % (Auto) (0.0-1.5) % Neut # (Auto) (1.4-5.7) K/uL Lymph # (Auto) (0.6-2.4) K/uL [place] # (Auto) (0.0-0.8) K/uL Eos # (Auto) (0.0-0.7) K/uL Baso # (Auto) (0.0-0.1) K/uL INR APTT (18.6-31.3) SEC Sodium (136-145) mmol/L Potassium (3.5-5.1) mmol/L Chloride (98-107) mmol/L Carbon Dioxide (21.0-32.0) mmol/L BUN (7.0-18.0) mg/dL Creatinine (0.6-1.0) mg/dL Est Cr Clr Drug Dosing mL/min Estimated GFR (MDRD) ml/min Glucose (74-106) mg/dL POC Glucose 87 (60-110) mg/dL Hemoglobin A1c (4.5-6.2) % Calcium (8.5-10.1) mg/dL Total Bilirubin (0.2-1.0) mg/dL AST (15-37) IU/L ALT (14-63) IU/L Alkaline Phosphatase (46-116) U/L Troponin I (0.000-0.056) ng/mL Total Protein (6.4-8.2) g/dL Albumin (3.4-5.0) g/dL Globulin (2.6-4.0) g/dL Albumin/Globulin Ratio (0.9-1.6) Triglycerides (0-200) mg/dL Cholesterol (50-200) mg/dL LDL Cholesterol, Calc (60-180) mg/dL VLDL Cholesterol (5-55) mg/dL HDL Cholesterol (40-60) mg/dL Cholesterol/HDL Ratio (3.3-6.0) TSH 3rd Generation (0.36-3.74) uIU/mL Urine Color Urine Appearance Urine pH (5.0-8.0) Ur Specific [place] (1.001-1.035) Urine Protein (NEGATIVE) mg/dL Urine Glucose (UA) (NEGATIVE) mg/dL Urine Ketones (NEGATIVE) mg/dL Urine Occult Blood (NEGATIVE) Urine Nitrite (NEGATIVE) Urine Bilirubin (NEGATIVE) Urine Urobilinogen (<2.0) EU/dL Ur Leukocyte Esterase (NEGATIVE) Urine RBC (0-2/HPF) Urine WBC (0-5/HPF) Ur Epithelial Cells (NONE-FEW) Urine Bacteria (NEGATIVE) SARS Virus RNA (PCR) (NEGATIVE) Med Orders - Current: Current Medications Acetaminophen (Tylenol Extra Strength) 500 mg PO Q6H PRN PRN Reason: Pain Last Admin: 08/01/20 04:40 Dose: 500 mg Documented by: Aspirin (Halfprin) 81 mg PO DAILY [facility] Last Admin: 08/01/20 08:47 Dose: 81 mg Documented by: Atorvastatin Calcium (Lipitor) 40 mg PO DAILY [facility] Last Admin: 08/01/20 08:47 Dose: 40 mg Documented by: Pantoprazole Sodium (Protonix) 40 mg PO DAILY [facility] Last Admin: 08/01/20 08:47 Dose: 40 mg Documented by: Sodium Chloride (Saline Flush) 10 ml FLUSH ASDIRECTED PRN PRN Reason: Keep Vein Open Last Admin: 07/31/20 12:34 Dose: 10 ml Documented by: Sodium Chloride (Saline Flush) 2.5 ml FLUSH ASDIRECTED PRN PRN Reason: Keep Vein Open Last Admin: 07/31/20 12:34 Dose: 2.5 ml Documented by: Sodium Chloride (Normal Saline) 10 ml IV ASDIRECTED PRN PRN Reason: IV Use Last Admin: 07/31/20 12:34 Dose: 10 ml Documented by: Discontinued Medications Aspirin (Aspirin) 81 mg PO ONETIME ONE Stop: 07/31/20 13:30 Last Admin: 07/31/20 15:30 Dose: 81 mg Documented by: Atorvastatin Calcium (Lipitor) 20 mg PO ONETIME ONE Stop: 07/31/20 13:30 Last Admin: 07/31/20 15:30 Dose: 20 mg Documented by: Atorvastatin Calcium (Lipitor) 20 mg PO ONETIME ONE Stop: 07/31/20 14:16 Last Admin: 07/31/20 15:54 Dose: Not Given Documented by: Atorvastatin Calcium (Lipitor) 20 mg PO DAILY JIMENA Iopamidol (Isovue-370 (76%)) 100 ml IVPUSH ONETIME ONE Stop: 07/31/20 12:53 Last Admin: 07/31/20 12:52 Dose: 100 ml Documented by:
[2020-08-01 12:02] VITALS: BP 128/76; PULSE 93
== END 2020-08-01 12:40 | disposition home or self-care (01) ==
LOC: MW.ED 12:16 → MW.MS 14:05
PROVIDERS: ADMIT Internal Medicine; ATTEND Internal Medicine
DX: R47.1 Dysarthria and anarthria (principal); F41.9 Anxiety disorder, unspecified; Z20.828 Contact with and (suspected) exposure to other viral communicable diseases; G93.89 Other specified disorders of brain; R73.03 Prediabetes; E78.00 Pure hypercholesterolemia, unspecified; Z86.73 Personal history of transient ischemic attack (TIA), and cerebral infarction without residual deficits; Z98.890 Other specified postprocedural states; Z86.79 Personal history of other diseases of the circulatory system; Z79.82 Long term (current) use of aspirin; Z79.899 Other long term (current) drug therapy
CPT/HCPCS: 36415; 70450; 70496; 70498; 80048; 80053; 80061; 81001; 82962; 83036; 84443; 84484; 85025; 85610; 85730; 93005; A9270; G0378; J7050; Q9967; U0002; 93010; 99217; 99219; 99285

== ENCOUNTER 2021-01-18 07:43 | Day surgery (SDC) | payer MEDICARE, OTHER ==
[~2021-01-18 07:43] MED LIST: Lactated Ringers 1,000 ML IV SCH; Propofol 200 MG/20 ML SDV ONE; Sodium Chloride 0.9% 10 ML SDV IV PRN; Sodium Chloride 0.9% 10 ML Syringe FLUSH PRN; Sodium Chloride 0.9% 2.5 ML Syringe FLUSH PRN; fentaNYL 100 MCG/2 ML SDV ONE
--- NOTE | 2021-01-18 08:32 | PCM.PREANE ---
Preanesthetic Assessment - Anesthesia/Transfusion/Family Hx Anesthesia History: Prior Anesthesia Without Reaction Family History of Anesthesia Reaction: No Transfusion History: No Prior Transfusion(s) Intubation History: Unknown - Review of Systems General: No Symptoms Pulmonary: No Symptoms Cardiovascular: No Symptoms Gastrointestinal: No Symptoms, Other (positive colo-guard test) Neurological: No Symptoms Other: Reports: None - Physical Assessment Vital Signs: Last Vital Signs Temp 36.2 C 01/18/21 08:10 Pulse 91 01/18/21 08:10 Resp 16 01/18/21 08:10 BP 141/79 H 01/18/21 08:10 Pulse Ox 95 01/18/21 08:10 Height: 5 ft 4 in Weight: 64.41 kg ASA Class: 2 Mental Status: Alert & Oriented x3 Airway Class: Mallampati = 2 Dentition: Reports: Normal Dentition Thyro-Mental Finger Breadths: 3 Mouth Opening Finger Breadths: 2 (small mouth) ROM/Head Extension: Limited/Partial Lungs: Clear to Auscultation, Normal Respiratory Effort Cardiovascular: Regular Rate, Regular Rhythm - Allergies Allergies/Adverse Reactions: Allergies Allergy/AdvReac Type Severity Reaction Status Date / Time No Known Allergies Allergy Verified 01/18/21 07:53 - Blood Blood Available: No - Anesthesia Plan Pre-Op Medication Ordered: None - Acknowledgements Anesthesia Type Planned: MAC Pt an Appropriate Candidate for the Planned Anesthesia: Yes Alternatives and Risks of Anesthesia Discussed w Pt/Guardian: Yes Pt/Guardian Understands and Agrees with Anesthesia Plan: Yes PreAnesthesia Questionnaire - Past Health History Medical/Surgical History: Denies Medical/Surgical History HEENT History: Reports: Impaired Vision Other HEENT History: wears glasses Cardiovascular History: Reports: High Cholesterol Respiratory History: Reports: None Gastrointestinal History: Reports: Other (See Below) Other Gastrointestinal History: occasional heartburn "if I over indulge" Genitourinary History: Reports: Renal Calculus, Other (See Below) Other Genitourinary History: Kidney stone [employer] History: Reports: Musculoskeletal History: Reports: Fracture Other Musculoskeletal History: hx fx ankle Neurological History: Reports: Other (See Below) Other Neuro History: 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 Temporal area of the brain affected by the stroke. Psychiatric History: Reports: Anxiety Endocrine/Metabolic History: Reports: None Hematologic History: Reports: None Immunologic History: Reports: None Oncologic (Cancer) History: Reports: None Dermatologic History: Reports: None - Infectious Disease History Infectious Disease History: Reports: Chicken Pox, Measles, Mumps - Past Surgical History Head Surgeries/Procedures: Reports: Craniotomy HEENT Surgical History: Reports: Cataract Surgery Cardiovascular Surgical History: Reports: None Respiratory Surgical History: Reports: None GI Surgical History: Reports: None Female Surgical History: Reports: None Endocrine Surgical History: Reports: None Neurological Surgical History: Reports: Other (See Below) Other Neurological Surgeries/Procedures: craniotomy 11/06 Musculoskeletal Surgical History: Reports: Other (See Below) Other Musculoskeletal Surgeries/Procedures:: left knee surgery, exc of ganglion cyst Oncologic Surgical History: Reports: None Dermatological Surgical History: Reports: None - SUBSTANCE USE Tobacco Use Status *Q: Never Tobacco User Recreational Drug Use History: No - HOME MEDS Home Medications: Home Meds DULoxetine [Cymbalta] 60 mg PO DAILY 06/01/17 [History] Acetaminophen [Tylenol] 1 tab PO ASDIRECTED PRN 07/31/20 [History] atorvaSTATin [Lipitor] 40 mg PO DAILY #30 tablet 08/01/20 [Rx] Calcium Carbonate [Calcium] 250 mg PO DAILY 01/12/21 [History] Cholecalciferol (Vitamin D3) [Vitamin D3] 2,000 units PO DAILY 01/12/21 [History] Glucosamine [Glucosamine Sulfate] 1 tab PO DAILY 01/12/21 [History] - CURRENT (IN HOUSE) MEDS Current Meds: Current Medications Lactated Ringer's (Ringers, Lactated) 1,000 mls @ 125 mls/hr IV ASDIRECTED JIMENA Last Admin: 01/18/21 08:14 Dose: 125 mls/hr Documented by: Sodium Chloride (Saline Flush) 2.5 ml FLUSH ASDIRECTED PRN PRN Reason: Keep Vein Open Sodium Chloride (Normal Saline) 10 ml IV ASDIRECTED PRN PRN Reason: IV Use Discontinued Medications Fentanyl (Sublimaze) Confirm Administered Dose 100 mcg .ROUTE .STK-MED ONE Stop: 01/18/21 07:02 Lidocaine HCl (Xylocaine-Mpf 1%) Confirm Administered Dose 5 ml .ROUTE .STK-MED ONE Stop: 01/18/21 07:04 Propofol (Diprivan 20 Ml) Confirm Administered Dose 400 mg .ROUTE .[facility] ONE Stop: 01/18/21 07:02
--- NOTE | 2021-01-18 10:14 | PCM.POSTAN ---
POST ANESTHESIA ASSESSMENT - MENTAL STATUS Mental Status: Alert, Oriented - VITAL SIGNS Vital Signs: Last Vital Signs Temp 36.2 C 01/18/21 08:10 Pulse 68 01/18/21 10:06 Resp 15 01/18/21 10:06 BP 128/74 01/18/21 10:06 Pulse Ox 98 01/18/21 10:06 - RESPIRATORY Respiratory Status: Respiratory Rate WNL, Airway Patent, O2 Saturation Stable - CARDIOVASCULAR CV Status: Pulse Rate WNL, Blood Pressure Stable - GASTROINTESTINAL GI Status: No Symptoms - PAIN Pain Score: 0 - POST OP HYDRATION Hydration Status: Adequate & Stable - OBSERVATIONS Free Text/Narrative:: No anesthesia problems
--- NOTE | 2021-01-18 10:17 | PCM48HPAN ---
Post Anesthesia Note - EVALUATION WITHIN 48HRS OF ANESTHETIC Vital Signs in Normal Range: Yes Patient Participated in Evaluation: Yes Respiratory Function Stable: Yes Airway Patent: Yes Cardiovascular Function Stable: Yes Hydration Status Stable: Yes Pain Control Satisfactory: Yes Nausea and Vomiting Control Satisfactory: Yes Mental Status Recovered: Yes Vital Signs: Last Vital Signs Temp 36.2 C 01/18/21 08:10 Pulse 68 01/18/21 10:06 Resp 15 01/18/21 10:06 BP 128/74 01/18/21 10:06 Pulse Ox 98 01/18/21 10:06 - COMMENTS/OBSERVATIONS Free Text/Narrative:: No anesthesia problems
[2021-01-18 10:26] VITALS: BP 139/76; PULSE 66
--- NOTE | 2021-01-19 07:54 | OR ---
SURGEON: YESSENIA GAO MD DATE OF PROCEDURE: 01/18/2021 PREOPERATIVE DIAGNOSIS: Positive Cologuard test. POSTOPERATIVE DIAGNOSIS: Rectal polyp. PROCEDURE PERFORMED: Diagnostic colonoscopy with polypectomy. PRIMARY SURGEON: Yessenia Gao MD. ANESTHESIA: MAC. INSTRUMENT USED: Olympus colonoscope. EXTENT OF EXAMINATION: To the cecum. PREPARATION: Good. LIMITATIONS: None. INDICATIONS FOR EXAMINATION: The patient is a 70-year-old female who presented with a positive Cologuard test. The patient and I discussed the need for a diagnostic colonoscopy. I explained the procedure, expected perioperative course, and the risks. She verbalized understanding and wishes to proceed. PROCEDURE IN DETAIL: The patient was brought into the endoscopy suite and placed in the left lateral decubitus position. A time-out was completed verifying the patient's name, age, date of , allergies, and procedure to be performed. Monitored anesthesia care was induced and continuous oxygen was provided via nasal cannula throughout the procedure. After adequate sedation was achieved, a digital rectal exam was performed. This exam was within normal limits. A well-lubricated colonoscope was inserted in the rectum and advanced under direct visualization to the level of the cecum. The cecum was identified by both visual and anatomic landmarks. A photograph was taken of the cecal cap; however, I was unable to retroflex the scope within the cecum due to looping of the scope more proximally. The scope was then fully withdrawn while examining the color, texture, anatomy, and integrity of mucosa from the cecum to the anal canal. The patient was found to have a flat sessile polyp that appeared villous in the rectum. I was able to remove this in piecemeal fashion using a cold biopsy forceps. It was sent to Pathology labeled as rectal polyp. Other than that, the remainder of the colon appeared normal. The scope was retroflexed within the rectum to allow visualization of the anal canal opening. This appeared normal, and a photograph was taken. The scope was straightened out and fully withdrawn. The cecum to anus time was greater than 6 minutes. The patient tolerated the procedure well and was transferred to the PACU in stable condition. ENDOSCOPIC DIAGNOSIS: Rectal polyp. RECOMMENDATIONS: Follow up in clinic in 2 weeks. CECE / CHARLENE /[id number]
== END 2021-01-18 10:39 ==
LOC: MW.SDS 07:43
PROVIDERS: ATTEND Surgery
DX: D12.8 Benign neoplasm of rectum (principal); E85.4 Organ-limited amyloidosis; I68.0 Cerebral amyloid angiopathy; Z79.899 Other long term (current) drug therapy; Z98.890 Other specified postprocedural states; E78.00 Pure hypercholesterolemia, unspecified
CPT/HCPCS: 45380; 88305; J2704; J3010; J7120; 88312

== ENCOUNTER 2022-01-31 08:45 | Day surgery (SDC) | payer MEDICARE, OTHER ==
[~2022-01-31 08:45] MED LIST changes: -Propofol 200 MG/20 ML SDV ONE; -Sodium Chloride 0.9% 10 ML SDV IV PRN; +Sodium Chloride 0.9% 20 ML SDV IV PRN; -fentaNYL 100 MCG/2 ML SDV ONE
[2022-01-31] MEDS ORDERED: propofoL 50 ML ONE (09:52)
[2022-01-31] MEDS ORDERED: Midazolam 1 MG/ML 2 ML SDV ONE (09:54)
[2022-01-31] MEDS ORDERED: Lidocaine 2% 100 MG/5 ML Syringe ONE (09:55)
[2022-01-31 12:07] VITALS: BP 114/62; PULSE 69
== END 2022-01-31 12:03 | disposition home or self-care (01) ==
LOC: MW.SDS 08:45
PROVIDERS: ATTEND Surgery
DX: Z09 Encounter for follow-up examination after completed treatment for conditions other than malignant neoplasm (principal); E78.5 Hyperlipidemia, unspecified; I10 Essential (primary) hypertension; K21.9 Gastro-esophageal reflux disease without esophagitis; F41.9 Anxiety disorder, unspecified; Z98.890 Other specified postprocedural states; Z79.899 Other long term (current) drug therapy; Z80.0 Family history of malignant neoplasm of digestive organs; Z86.010 Personal history of colon polyps; Z85.048 Personal history of other malignant neoplasm of rectum, rectosigmoid junction, and anus
CPT/HCPCS: 45378; J2250; J2704; J7120; 00811; 99100

== ENCOUNTER 2024-12-07 20:38 | Emergency (ER) | payer MEDICARE, OTHER ==
[2024-12-07 21:24] LABS: BASOPHILS ABSOLUTE AUTO 0.02 K/uL (0.00-0.20); BASOPHILS PERCENT AUTO 0.3 % (0.0-1.0); EOSINOPHILS ABSOLUTE AUTO 0.18 K/uL (0.00-0.45); EOSINOPHILS PERCENT AUTO 2.8 % (0.0-6.0); HEMATOCRIT 36.7 % (37.0-47.0); HEMOGLOBIN 12.4 g/dL (12.0-16.0); IMMATURE GRAN ABSOLUTE AUTO 0.01 K/uL (0.00-0.05); IMMATURE GRAN PERCENT AUTO 0.2 % (0.0-0.4); LYMPHOCYTES ABSOLUTE AUTO 1.68 K/uL (1.00-4.80); LYMPHOCYTES PERCENT AUTO 26.3 % (24.0-44.0); MEAN CORPUSCULAR HEMOGLOBIN 30.8 pg (28.0-32.0); MEAN CORPUSCULAR HGB CONC 33.8 g/dL (32.0-36.0); MEAN CORPUSCULAR VOLUME 91.3 fL (83.0-99.0); MEAN PLATELET VOLUME 9.6 fL (9.4-12.3); MONOCYTES PERCENT AUTO 7.8 % (0.0-8.0); NEUTROPHILS ABSOLUTE AUTO 4.01 K/uL (1.80-7.70); NEUTROPHILS PERCENT AUTO 62.6 % (41.0-71.0); PLATELET COUNT,PLT 321 K/uL (150-400); RED BLOOD CELL COUNT 4.02 M/uL (4.10-5.30)
[2024-12-07 21:41] LABS: APPEARANCE,URINE CLEAR; BILIRUBIN,URINE NEGATIVE (NEGATIVE); COLOR,URINE YELLOW; GLUCOSE,URINE NEGATIVE (NEGATIVE); KETONES,URINE NEGATIVE (NEGATIVE); LEUKOCYTE ESTERASE,URINE NEGATIVE (NEGATIVE); NITRITE,URINE NEGATIVE (NEGATIVE); OCCULT BLOOD,URINE NEGATIVE (NEGATIVE); PROTEIN,URINE NEGATIVE (NEGATIVE); UROBILINOGEN,URINE 0.2 EU/dL (<2.0)
[2024-12-07] MEDS ORDERED: Sodium Chloride 0.9% 2.5 ML Syringe FLUSH PRN (21:45)
[2024-12-07] MEDS ORDERED: Sodium Chloride 0.9% 10 ML Syringe FLUSH PRN (21:45)
[2024-12-07 21:54] LABS: A/G RATIO 0.8 (0.9-1.6); ALBUMIN 3.1 g/dL (3.4-5.0); BILIRUBIN TOTAL 0.5 mg/dL (0.2-1.0); CALCIUM 9.3 mg/dL (8.5-10.1); CARBON DIOXIDE,CO2 27.5 mmol/L (21.0-32.0); CREATININE 0.8 mg/dL (0.6-1.0); EST CRCL DRUG DOSING (CG) 50.26 mL/min; PROTEIN TOTAL,TP 6.8 g/dL (6.4-8.2)
[2024-12-07] MEDS: Iopamidol 755 MG/ML 500 ML Multipack Bottle IVPUSH ONE (22:27)
[2024-12-07 23:38] VITALS: BP 110/70; PULSE 62
== END 2024-12-07 23:37 | disposition home or self-care (01) ==
LOC: MW.ED 20:38
DX: R41.0 Disorientation, unspecified (principal); I10 Essential (primary) hypertension; E78.00 Pure hypercholesterolemia, unspecified; Z79.899 Other long term (current) drug therapy; Z75.8 Other problems related to medical facilities and other health care
CPT/HCPCS: 36415; 70450; 70496; 70498; 71045; 80053; 81003; 83735; 85025; 87428; 93005; 99285; Q9967